=== PATIENT | male | born 1970 | race Two or more races ===

== ENCOUNTER → 2024-06-15 | Outpatient (CLI) | payer MEDICARE, SELFPAY ==
--- NOTE | 2024-06-15 09:16 | XR_ITS ---
Examination: CT abdomen with intravenous contrast. Coronal 2-D reconstructions. Sagittal 2-D reconstructions. Date and time of exam:June 15, 2024 0956 hrs. Comparison August 19, 2021 Indications: Diagnosis cirrhosis 6 years ago, preop liver transplant CTDI: vol (mGy): 7.37 DLP: (mGycm): 229 Technique: Axial images of the abdomen have been obtained, 3 mm slice thickness, 60 cc [id number] 2-D sagittal coronal reconstructions Low dose protocols were performed. One or more of the following dose reduction techniques were used; automated exposure control, adjustment of the mA and/or KV according to patient size, use of iterative reconstruction technique. Findings: Marked mucosal thickening, epigastric Cirrhosis, no focal liver lesions Cholelithiasis Marked splenomegaly Portosystemic collateral vessels medial to the spleen No pancreatic mass Aorta normal size Moderate renal parenchymal scar formation, no hydronephrosis Normal appendix No bowel obstruction Moderate osteopenia Impression: Gastritis pattern Cirrhosis Cholelithiasis Marked splenomegaly Portal hypertension
== END | disposition home or self-care (01) ==
PROVIDERS: PCP Family Medicine
DX: K80.20 Calculus of gallbladder without cholecystitis without obstruction (principal); R16.1 Splenomegaly, not elsewhere classified; K76.6 Portal hypertension
CPT/HCPCS: 74160; A4649; Q9967

== ENCOUNTER 2024-08-01 19:53 | Inpatient (IN) | payer MEDICARE, MEDICAID, SELFPAY ==
[2024-08-01 19:55] VITALS: BP 155/77; PULSE 83; RESP 20; TEMP 36.9; O2SAT 98
--- NOTE | 2024-08-01 20:18 | XR_ITS ---
Examination: AP chest single view TECHNIQUE: AP portable upright chest single view Date and time: August 01, 2024 2142 hours Comparison September 21, 2023 INDICATIONS: Weakness altered mental status today. FINDINGS: Normal heart size. No aspiration pneumonia. No pulmonary edema. Mild osteopenia IMPRESSION: No pneumonia or pulmonary edema
[2024-08-01 20:20] VITALS: PULSE 76; RESP 17; O2SAT 98
[2024-08-01 20:25] VITALS: BMI 24.0
--- NOTE | 2024-08-01 20:25 | EDNOTE_ITS ---
ED General RME/HPI General Chief complaint: Altered Mental Status Stated complaint: ALTERED MENTAL STATUS Time Seen by Provider: 08/01/24 20:17 Arrival date/time: 08/01/24 19:53 CC: Altered mental status HPI patient skipped dialysis because he was not feeling well , the patient has a history of cirrhosis, and did not take his lactulose. Family member stated he has been intermittently obtunded and then active. Patient is not responding to any questions appropriately answering yes to all questions that are asked. EMS reports stable vital signs and route. Related Data Home Medications ?Medication ?Instructions ?Recorded ?Confirmed levothyroxine 50 mcg tablet 50 mcg PO DAILY 07/04/21 0 09/21/23 pantoprazole 40 mg tablet,delayed 40 mg PO DAILY 07/0408/19/21 release propranolol 10 mg tablet 10 mg PO DAILY 07/04/2108/07 spironolactone 50 mg tablet 50 mg PO DAILY 07/04/21 cholecalciferol (vitamin D3) 50 1 cap PO QDAY 08/19/21 08/19/21 mcg (2,000 unit) capsule Previous Rx's ?Medication ?Instructions ?Recorded metformin 500 mg tablet 500 mg PO BID #60 tabs 06/05 ferrous sulfate 325 mg (65 mg 325 mg PO Q OTHER DAY #3 0 tabs 04/22/23 iron) tablet (FeroSul) furosemide 40 mg tablet (Lasix) 40 mg PO QDAY #30 tabs 09/23/23 lactulose 20 gram/30 mL oral 40 g (60 mL) PO TID #5,50 0 mL 09/23/23 solution Allergies Allergy/AdvReac Type Severity Reaction Status Date / Time No Known Allergies Allergy Verified 08/01/24 20:17 Review of Systems Review of Systems ROS Unobtainable: unobtainable due to mental status ED Exam Narrative Physical exam: [General: Appears not in acute distress Head normocephalic HEENT: Eyes pupils are PERRLA EOMs are intact mouth pink dry membranes all the subsystems of HEENT are within acceptable limits Neck is supple nontender Chest equal chest rise nontender to palpation Respiratory: Clear to auscultation no wheezes crackles or rubs CV: Rate rhythm is regular no murmurs rubs or clicks Abdomen is soft nontender no masses positive bowel sounds all 4 quadrants Back: No CVA tenderness no spinous process tenderness from cervical spine thoracic and lumbar spine Skin: Intact no petechiae rash induration ulceration or crepitus Extremities: Moving all extremity against resistance cap refill less than 2 seconds neurosensory intact Neuro: Awake alert oriented self Course Course Course Narrative: Patient continues to have mild altered responses sometimes answering just yes to everything, at 2119, patient is reassessed he is unchanged, on review the laboratory results show that his ammonia level is greater than 140, his creatinine at 4.2. Patient's head CT is negative this time the patient needs to be admitted for hepatic encephalopathy elevated ammonia level and consider dialysis. Patient's case discussed with Dr. Daugherty, resident, for Dr. Lalo Khan's agrees to accept the patient for admission. Quality Measures none Orders Category Date Time Status EKG (ED ONLY) *Do not use* NOW Care 08/01/24 20:[address] head/brain wo con Stat Exams 08/01/24 20:27 Completed EKG (ED Only) Stat Exams 08/01/24 20:18 Ordered XR chest 1V Stat Exams 08/01/24 20:18 Ordered Ammonia Stat Lab 08/01/24 20:35 Completed B-Type Natriuretic Peptide Stat Lab 08/01/24 20:35 Completed CBC Stat Lab 08/01/24 20:35 Completed Comprehensive Metabolic Panel Stat Lab 08/01/24 20:35 Completed Drug Screen,Urine Stat Lab 08/01/24 20:18 Ordered LDH (Lactate Dehydrogenase) Stat Lab 08/01/24 20:35 Completed Magnesium Stat Lab 08/01/24 20:35 Completed Partial Thromboplastin Time Stat Lab 08/01/24 20:35 Completed Prothrombin Time with INR Stat Lab 08/01/24 20:35 Completed Troponin I Stat Lab 08/01/24 20:35 Completed Urinalysis Stat Lab 08/01/24 20:18 Ordered Lactulose Syrup [Enulose Syrup] Med 08/01/24 21:13 Discontinued 40 gm PO X1 ONE cloNIDine HCL [Catapres] Med 08/01/24 21:05 Discontinued 0.2 mg PO X1 ONE Vital Signs Vital signs: Vital Signs Temperature 98.4 F 08/01/24 19:55 Pulse Rate 83 08/01/24 19:55 Respiratory Rate 20 08/01/24 19:55 Blood Pressure 155/77 H 08/01/24 19:55 Pulse Oximetry (%) 98 08/01/24 19:55 Oxygen Delivery Method Room Air 08/01/24 19:55 Discharge Plan Plan Patient Disposition: Other Care w/in Hosp (SDC/HAL) Patient condition on transfer: Stable Prescriptions/Referrals Prescriptions/Med Rec: No Action propranolol 10 mg tablet 10 mg PO DAILY levothyroxine 50 mcg tablet 50 mcg PO DAILY pantoprazole 40 mg tablet,delayed release (DR/EC) 40 mg PO DAILY spironolactone 50 mg tablet 50 mg PO DAILY cholecalciferol (vitamin D3) 50 mcg (2,000 unit) capsule 1 cap PO QDAY Patient Comments: TOME 1 C PSULA POR V A ORAL TODOS LOS D ferrous sulfate [FeroSul] 325 mg (65 mg iron) tablet 325 mg PO Q OTHER DAY Qty: 30 0RF metformin 500 mg tablet 500 mg PO BID Qty: 60 0RF lactulose 20 gram/30 mL solution 40 g PO TID Qty: 5500 0RF furosemide [Lasix] 40 mg tablet 40 mg PO QDAY Qty: 30 0RF Referrals: Randall Ward MD [Primary Care Provider] - In 1 week Problem List Clinical Impression: HE (hepatic encephalopathy), Altered mental status, ESRD (end stage renal disease), Hyperglycemia Patient/Caregiver Discharge Instructions Print Language: Kiswahili Stand Alone Forms: Mago Award Info., Patient Portal Info Letter PA/OBGYN NURSE Supervising Physician PA/OBGYN NURSE Supervising Physician: Main Ivan ENP [facility] Clinical Information Provided by patient and EMS Medical Records [facility] and [facility] Meds/Rx Considered, not Ordered None Labs/Rad/Tests considered, not Ordered None EKG EKG Interpretation narrative: EKG performed at 195 shows a ventricular rate of 75 VA interval 196 QRS of 92 QTc of 484 sinus rhythm Lab Interpretation Labs: interpreted by ar Lab(s) interpretation(s): CBC shows a pancytopenic with a WBC of 2.9 H&H of 11.2 and 31.4 respectively. Platelet count of 80. PT of 13.1 INR 1.2 PTT of 27.5 CMP shows no significant electrolyte imbalances other than a glucose of 256 BUN of 36 creatinine 4.2 T. bili of 2.3 ALT of 9 alk phos of 190 AST of 14 Ammonia of 142 Troponin is 0.002. BMP of 271 Imaging Imaging interpretation: interpreted by me Provider imaging interpretation(s): CT of the head is negative for any acute finding requires emergent or main intervention. Medication Administration(s) Medication Administration History Discontinued Medications Clonidine (Clonidine Hcl 0.1 Mg Tablet) 0.2 mg PO X1 ONE Stop: 08/01/24 21:06 Lactulose (Lactulose Syrup 20 Gm/30 Ml Udc) 40 gm PO X1 ONE; Protocol Stop: 08/01/24 21:14
--- NOTE | 2024-08-01 20:27 | XR_ITS ---
Examination: CT brain head without contrast. 2-D sagittal coronal reconstructions Date and time of exam:August 01, 20245 hours INDICATIONS: Altered mental status today CTDI: vol (mGy):46.1 DLP: (mGycm):886 Technique: Multiple CT axial sections of the brain have been obtained, 5 mm slice thickness. Contrast has not been administered. 2-D sagittal, coronal reconstructions have been obtained Low dose protocols were performed. One or more of the following dose reduction techniques were used; automated exposure control, adjustment of the mA and/or KV according to patient size, use of iterative reconstruction technique. Findings: No significant ventricular enlargement. Intra-axial or extra-axial hemorrhage density is not seen. No mass effect or midline shift Basal cisterns are not remarkable. Fourth ventricle is midline. Cranial vault intact. Impression: Negative for acute hemorrhage, mass effect or midline shift Advise clinical correlation and follow up accordingly
--- NOTE | 2024-08-01 20:47 | PC.NURSE ---
CALLED SON TO GET NAME OF COMPASS OPERATOR
[2024-08-01 20:48] LABS: Basophils % (Auto) 0 % (0-2.5); Eosinophils # (Auto) 0.1 Thou/mm3 (0.0-0.5); Eosinophils % (Auto) 3 % (0-10); Hematocrit 31.4 % (41.0-53.0); Hemoglobin 11.2 g/dL (13.5-16.0); Immature Granulocytes % (Auto) 0 % (0-0); Immature Granulocytes Auto 0.01 Thou/mm3 (0.00-0.00); Lymphocytes # (Auto) 0.6 Thou/mm3 (1.0-4.8); Lymphocytes % (Auto) 20 % (10-50); Mean Corpuscular HGB Conc 35.7 g/dl (31.0-37.0); Mean Corpuscular Volume 106 fL (80-100); Monocytes # (Auto) 0.2 Thou/mm3 (0.0-0.8); Monocytes % (Auto) 8 % (0-12); Neutrophils % (Auto) 70 % (37-80); Nucleated Red Blood Cell % 0 /100 WBC (0); Platelet Count 80 Thou/mm3 (140-440); RDW Standard Deviation 58.6 fL (35.1-43.9); Red Blood Count 2.95 Miln/mm3 (4.50-5.90)
[2024-08-01 20:49] LABS: White Blood Count 2.9 Thou/mm3 (3.8-10.6)
--- NOTE | 2024-08-01 20:56 | PC.NURSE ---
SON CALLED BACK PT COMPUTER SOFTWARE ENGINEER IS DR. AC MEHTA
[2024-08-01 21:00] LABS: B-Type Natriuretic Peptide 271 pg/mL (0-100); INR 1.2 (0.9-1.3); Partial Thromboplastin Time 27.5 Seconds (22.0-36.0); Prothrombin Time 13.1 Seconds (9.0-12.2)
[2024-08-01 21:01] LABS: Ammonia 142 uMol/L (11-32)
[2024-08-01 21:04] LABS: Alanine Aminotransferase 9 U/L (10-49); Albumin, Serum 3.2 gm/dL (3.5-5.0); Anion Gap 10 (7-16); Aspartate Amino Transferase 14 U/L (0-34); BUN/Creatinine Ratio 9 Ratio (12-20); Bilirubin,Total 2.3 mg/dL (0.3-1.2); Blood Urea Nitrogen 36 mg/dL (9-23); Calcium 10.2 mg/dL (8.3-10.6); Calcium (Corrected) 10.8 mg/dL (8.5-10.1); Carbon Dioxide 20.8 mMol/L (20.0-31.0); Chloride 107 mMol/L (98-107); Creatinine (Component) 4.2 mg/dL (0.6-1.3); Estimated Creatinine Clearance 17.9 mL/min (>60); Globulin 3.5 gm/dL (2.3-3.5); Glucose 256 mg/dL (74-106); LDH (Lactate Dehydrogenase) 159 U/L (120-246); Magnesium 1.9 mg/dL (1.6-2.6); Osmolality,Calculated 292 (275-295); Potassium 4.7 mMol/L (3.4-5.1); Sodium 138 mMol/L (136-145); Total Protein 6.7 gm/dL (5.7-8.2); Troponin I < 0.002 ng/mL (0.0-0.045); eGFR 16 See Note
[2024-08-01 21:05] LABS: Albumin/Globulin Ratio 0.9 (1.2-2.2); Alkaline Phosphatase 190 U/L (46-116)
--- NOTE | 2024-08-01 22:05 | ESHP_ITS ---
Documentation for date of: 08/01/24 HPI History of Present Illness History of present illness: Patient is a 53-year-old male with a past medical history of decompensated cirrhosis, end-stage renal disease, hypertension, accompanied by the son, who brought him to the emergency room complaining of altered mental status. States most of the HPI was completed from chart review and son's interview. Per son, patient has been confused since yesterday, has not had a bowel movement in the last 2 days, is usually compliant with his dialysis schedule, but missed dialysis today due to mental status. Denied having a fever, GI bleed, melena or hematemesis, cough, diarrhea or dysuria. Denied recent alcohol or drug intake. Of note, patient is followed by service order expediter in [place], is being evaluated for liver transplant but has not been placed on liver transplant list yet. ER Labs: CBC shows a pancytopenic with a WBC of 2.9 H&H of 11.2 and 31.4 respectively. Platelet count of 80. PT of 13.1 INR 1.2 PTT of 27.5 CMP shows no significant electrolyte imbalances other than a glucose of 256 BUN of 36 creatinine 4.2 T. bili of 2.3 ALT of 9 alk phos of 190 AST of 14 Ammonia of 142 Troponin is 0.002. BNP of 271 CT of the head is negative for any acute finding requires emergent or main intervention. Past medical history: End-stage renal disease on hemodialysis Thursday/Thursday/Thursday, followed by Dr. Diaz. Decompensated cirrhosis with ascites, hepatic encephalopathy. Diabetes mellitus. Hypothyroidism. Past surgical history: Not pertinent Social history: Denies smoking or drinking, per son patient quit drinking alcohol over 6 years ago. Family history: Not pertinent Review of Systems Review of Systems Systems Reviewed: All systems reviewed, normal except as documented Past Medical History Past Medical History NEUROLOGIC: Positive Seizures CARDIAC: Positive Hypertension; Negative Cardiac Disorders or Congestive Heart Failure RESPIRATORY: Negative Chronic Obstructive Pulmonary Disease (COPD) or Asthma GASTROINTESTINAL: Positive Gastrointestinal Disorders (Son at bedside said that pt has Ulcer.), Cirrhosis, Gastrointestinal Bleed and Ulcer GENITOURINARY: Positive Renal Disease and Dialysis ENDOCRINE: Negative Diabetes Mellitus Type 1 or Diabetes Mellitus Type 2 HEMATOLOGIC: Negative Blood Disorders or Sickle Cell Disease OTHER HISTORY: Negative Autoimmune Disease, Blood Transfusions, Blood Transfusion Reaction or Anesthesia Reactions Family History FAMILY HISTORY: Negative Family Psychiatric Problems, Family Respiratory Disorders, Family Cardiac Disorders, Family Gastrointestinal Problems, Family Cancer, Family Surgery or Family Anesthesia Reaction Social History SMOKING STATUS: Never smoker SECOND HAND EXPOSURE: No SUBSTANCE USE: does not use Exam Vital Signs Temp Pulse Resp BP Pulse Ox O2 Del Method 98.4 F 83 20 155/77 H 98 Room Air 08/01/24 19:55 08/01/24 19:55 08/01/24 19:55 08/01/24 19:55 08/01/24 19:55 08/01/24 19:55 Narrative Exam General: AOx1, disoritented but calm, confused speech, flapping tremors positive HEENT: NC/AT, mucous membranes moist, bilateral sclera anicteric Cardiovascular: regular rate and rhythm, S1/S2 present, no murmurs appreciated Pulmonary: clear to auscultation bilaterally, no rales/rhonchi/wheezes Abdominal: soft, non-tender, mildy distended, no rebound/guarding, normal bowel sounds present Musculoskeletal: normal ROM, no peripheral edema Skin: warm and dry, intact, no rashes Neuro: CN II-XII intact, no focal deficits Results: Labs 08/01/24 20:35 08/01/24 20:35 Labs: Short CBC 08/01/24 Range/Units 20:35 WBC 2.9 L (3.8-10.6) Thou/mm3 Hgb 11.2 L (13.5-16.0) g/dL Hct 31.4 L (41.0-53.0) % Plt Count 80 L (140-440) Thou/mm3 BMP 08/01/24 20:35 Sodium 138 Potassium 4.7 Chloride 107 Carbon Dioxide 20.8 BUN 36 H Creatinine 4.2 H* Glucose 256 H Calcium 10.2 Cardiac Enzymes 08/01/24 Range/Units 20:35 Troponin I < 0.002 (0.0-0.045) ng/mL Liver Function 08/01/24 Range/Units 20:35 Total Bilirubin 2.3 H (0.3-1.2) mg/dL AST 14 (0-34) U/L ALT 9 L (10-49) U/L Alkaline Phosphatase 190 H (46-116) U/L Albumin 3.2 L (3.5-5.0) gm/dL Quality Measures Quality Measures none Medications Home Medications and Allergies Home Medications ?Medication ?Instructions ?Recorded ?Confirmed ?Type levothyroxine 50 mcg tablet 50 mcg PO DAILY 07/04/21 0 09/21/23 History pantoprazole 40 mg tablet,delayed 40 mg PO DAILY 07/0408/19/21 History release propranolol 10 mg tablet 10 mg PO DAILY 07/04/2108/07 History spironolactone 50 mg tablet 50 mg PO DAILY 07/04/21 History cholecalciferol (vitamin D3) 50 1 cap PO QDAY 08/19/21 08/19/21 History mcg (2,000 unit) capsule Allergies Allergy/AdvReac Type Severity Reaction Status Date / Time No Known Allergies Allergy Verified 08/01/24 20:17 Visit Medications Discontinued Medications Clonidine (Clonidine Hcl 0.1 Mg Tablet) 0.2 mg PO X1 ONE Stop: 08/01/24 21:06 Lactulose (Lactulose Syrup 20 Gm/30 Ml Udc) 40 gm PO X1 ONE; Protocol Stop: 08/01/24 21:14 Assessment & Plan Plan Patient is a 53-year-old male with a past medical history of decompensated cirrhosis, end-stage renal disease, hypertension, accompanied by the son, who brought him to the emergency room complaining of altered mental status. States most of the HPI was completed from chart review and son's interview. Per son, patient has been confused since yesterday, has not had a bowel movement in the last 2 days, is usually compliant with his dialysis schedule, but missed dialysis today due to mental status. Denied having a fever, GI bleed, melena or hematemesis, cough, diarrhea or dysuria. Denied recent alcohol or drug intake. #Acute metabolic encephalopathy #Decompensated cirrhosis Likely secondary to hepatic encephalopathy versus uremic encephalopathy. prior history of hepatic encephalopathy, currently precipitating factor is likely constipation, no bowel movement in last 2 days, also missed scheduled hemodialysis today. Chest x-ray negative for pneumonia, pending urinalysis ordered straight and out cath. Abdominal soft nontender, no clinical suspicion of SBP, no history or evidence of GI bleed, stool occult pending. ? Lactulose enema 200 g x 1 ? Insert rectal tube ? Continue rifaximin ? Holding Lasix for now, patient is not in any acute volume overload, continue spironolactone ? Propranolol 10 mg twice daily ? IV Protonix for GI prophylaxis #History of ESRD - consult to narrative writer Dr Woods for Scheduled hemodialysis.. #History of diabetes mellitus ?Sliding scale insulin every 6 hour, patient n.p.o. for now due to encephalopathy. ?Follow A1c in the a.m. #History of Hypothyroidism - continue levothyroxine Plan of care discussed with attending physician Johanny PGY2 Attending Provider Attestation/Addendum 53-year-old male patient with decompensated cirrhosis, pancytopenia was admitted for hepatic encephalopathy. The patient will continue on rifaximin and lactulose enema I discussed with and supervised the resident physician who took care of this patient. I agree with the assessment and plan as above.
[2024-08-01 22:24] VITALS: BP 148/79; PULSE 73; RESP 19; TEMP 36.6; O2SAT 98
--- NOTE | 2024-08-01 22:24 | PC.NURSE ---
DONT GIVE PO LACTOLOSE PER
--- NOTE | 2024-08-01 22:32 | PC.NURSE ---
PER. DR. BENITA CADET GIVE CLONIDINE PT CURRENT B/P 125/76
[2024-08-01 22:43] VITALS: PULSE 69; RESP 13; O2SAT 100
--- NOTE | 2024-08-01 22:57 | PC.NURSE ---
ATTEMPTED IN AND OUT CATH NO URINE OUTPUT WHEN PT ASKED HE STATED HE DOES NOT HAVE MAKE URINE BEFORE
[2024-08-01 23:22] VITALS: BMI 23.7
[2024-08-02] VITALS (30 sets, daily range): BP systolic 102–171; BP diastolic 65–88; PULSE 56–91; RESP 16–99; TEMP 36.1–36.6; O2SAT 97–100
--- NOTE | 2024-08-02 00:04 | PC.NURSE ---
Patient had an order for a latulose enema, but patient refused. Rn will notify hospitalists.
--- NOTE | 2024-08-02 00:09 | XR_ITS ---
Examination: Abdomen sonogram, complete Date and time of exam: August 02, 2024 0226 hours INDICATIONS: Abdominal distention today. Technique: Multiple real-time grayscale transabdominal sonographic images of the abdomen have been obtained. Findings: Multiple gallstones Gallbladder wall 0.52 cm Common bile duct 0.3 cm Pancreatic head 2.9 cm Mid and distal aorta not enlarged Liver 11.1 cm irregular contour fatty infiltration Normal hepatopedal portal venous flow Patent IVC Right kidney 8.2 cm renal cortex 1.4 cm Left kidney 11.1 cm renal cortex 1.6 cm Moderate renal parenchymal scar formation Spleen 15.4 cm with portosystemic collateral vessels medial to the spleen IMPRESSION: Cholelithiasis, abnormal thickening of the gallbladder wall, consider HIDA scan or MRCP follow-up Cirrhosis Mild splenomegaly Portal hypertension with portosystemic collateral vessels medial to the spleen
[2024-08-02] MEDS: LACTULOSE SYRUP 20 GM/30 ML UDC 200 GM PR (00:10)
[2024-08-02] MEDS: INSULIN LISPRO (AdmeLOG) 1 UNIT/0.01 ML UNIT SC ×4 (00:37→18:16)
--- NOTE | 2024-08-02 00:40 | PC.NURSE ---
Addendum entered by Ismael De La Cruz RN 08/02/24 05:54: 0554 - Admission questions completed over phone with Bobo Ward (son) at [phone] Original Note: 0041H - Pt unable to answer admission questions. HUEY Guevara will all family at an appropriate time.
--- NOTE | 2024-08-02 02:06 | PC.NURSE ---
Addendum entered by Ismael De La Cruz RN 08/02/24 05:56: Bobo Ward (son) will bring medications to hospital when he comes to visit. Original Note: Med rec not done. Pt confused. RN will notify family to bring medication to hospital.
--- NOTE | 2024-08-02 04:08 | PRELIM_ITS ---
Ultrasound Abdomen. August 02, 2024 0226 hours Clinical history: ascites Technique: Grayscale and color flow images of the abdomen are provided. Hepatic and portal veins were also imaged with color flow images. Comparison: None Findings: Liver demonstrates heterogeneous echogenicity with irregular contour . Vein seen medial to the left lobe of liver ? recanalization of umbilical vein. No intrahepatic biliary ductal dilatation. There are gallbladder calculi, with wall thickening measuring 5 mm. The common bile duct is normal in caliber at 3 mm. No free fluid is demonstrated on the submitted images. The pancreas is suboptimally visualized due to excessive bowel gas . The right kidney measures 8.2cm. The left kidney measures 11 cm. There is no hydronephrosis and the corticomedullary differentiation is maintained. There is bilateral renal scarring .The spleen is enlarged measuring 15 cm in length.Varicose veins seen at hilum. The abdominal aorta and inferior vena cava to the extent visualized are within normal limits. Impression: Heterogeneous echogenicity of the liver with irregular borders suggestive of cirrhosis. Mild splenomegaly. Splenic hilar varices and recanalized umbilical vein as described above. No free fluid is demonstrated on the submitted images. Other findings as described above. Report Electronically Signed By: Bentley Otero 08/02/2024 4:07:56 AM [EST]
--- NOTE | 2024-08-02 04:52 | PC.NURSE ---
Dr. Barclay made aware of report of US Abdomen.
[2024-08-02 05:56] LABS: Basophils % (Auto) 1 % (0-2.5); Eosinophils # (Auto) 0.1 Thou/mm3 (0.0-0.5); Eosinophils % (Auto) 3 % (0-10); Hemoglobin 12.1 g/dL (13.5-16.0); Immature Granulocytes % (Auto) 1 % (0-0); Immature Granulocytes Auto 0.02 Thou/mm3 (0.00-0.00); Lymphocytes # (Auto) 0.6 Thou/mm3 (1.0-4.8); Lymphocytes % (Auto) 17 % (10-50); Mean Corpuscular HGB Conc 34.6 g/dl (31.0-37.0); Mean Corpuscular Hemoglobin 37.9 pg (25.0-35.0); Mean Corpuscular Volume 110 fL (80-100); Monocytes # (Auto) 0.3 Thou/mm3 (0.0-0.8); Monocytes % (Auto) 8 % (0-12); Neutrophils # (Auto) 2.4 Thou/mm3 (1.8-7.7); Neutrophils % (Auto) 71 % (37-80); Nucleated Red Blood Cell % 0 /100 WBC (0); Platelet Count 80 Thou/mm3 (140-440); RDW Standard Deviation 61.9 fL (35.1-43.9); Red Blood Count 3.19 Miln/mm3 (4.50-5.90); White Blood Count 3.4 Thou/mm3 (3.8-10.6)
[2024-08-02 06:11] LABS: INR 1.2 (0.9-1.3); Prothrombin Time 12.7 Seconds (9.0-12.2)
[2024-08-02 06:31] LABS: Glucose Estimated Average 157 mg/dL (80-131); Hemoglobin A1C 7.1 % Hgb (4.8-6.0)
[2024-08-02 06:34] LABS: Alanine Aminotransferase 9 U/L (10-49); Albumin, Serum 3.4 gm/dL (3.5-5.0); Alkaline Phosphatase 183 U/L (46-116); Anion Gap 14 (7-16); Aspartate Amino Transferase 18 U/L (0-34); BUN/Creatinine Ratio 8 Ratio (12-20); Bilirubin,Direct 0.9 mg/dL (0.0-0.3); Bilirubin,Total 2.7 mg/dL (0.3-1.2); Blood Urea Nitrogen 35 mg/dL (9-23); Calcium 10.5 mg/dL (8.3-10.6); Carbon Dioxide 19.2 mMol/L (20.0-31.0); Chloride 108 mMol/L (98-107); Creatinine (Component) 4.3 mg/dL (0.6-1.3); Estimated Creatinine Clearance 17.5 mL/min (>60); Glucose 333 mg/dL (74-106); Magnesium 2.1 mg/dL (1.6-2.6); Osmolality,Calculated 302 (275-295); Phosphorous 3.7 mg/dL (2.4-5.1); Potassium 4.6 mMol/L (3.4-5.1); Sodium 141 mMol/L (136-145); Thyroid Stimulating Hormone 2.17 uIU/mL (0.55-4.78); Total Protein 7.1 gm/dL (5.7-8.2); eGFR 15 See Note
[2024-08-02 06:48] LABS: Cholesterol 133 mg/dL (132-200); HDL Cholesterol 44 mg/dL (40-60); LDL Cholesterol,Calculated 73 mg/dL (0-130); Triglycerides 81 mg/dL (30-150)
[2024-08-02] MEDS: rifaximin 550 MG TABLET PO ×2 (08:36→21:03)
[2024-08-02] MEDS: SPIRONOLACTONE 25 MG TABLET 50 MG PO (08:36)
[2024-08-02] MEDS: LACTULOSE SYRUP 20 GM/30 ML UDC PO ×2 (08:37→21:02)
[2024-08-02] MEDS: PROPRANOLOL 10 MG TABLET PO (08:37)
[2024-08-02] MEDS: PANTOPRAZOLE INJ 40 MG VIAL IVP (08:37)
[2024-08-02] MEDS: ONDANSETRON INJ 2 MG/ML INJ 2 ML 4 MG IV ×3 (08:57→21:03)
--- NOTE | 2024-08-02 09:35 | ESPR_ITS ---
Documentation for date of: 08/02/24 Subjective Subjective Interval history: Patient was seen and examined at bedside this AM. No acute exents overnight. Patient tolerating diet, adequate urine output and oriented to self only Patient had 3 bowel movements and an episode of vomiting after his morning meds. Started on lasix 40mg IV daily, levothyroxine 25mg IV and ondansetron 4mg IV q4hrly. Scheduled lactulose 20G po QID as tolerated Exam Vital Signs Temp Pulse Resp BP Pulse Ox O2 Del Method O2 Flow Rate 97.1 F 79 18 165/88 H 98 Nasal Cannula 2 08/02/24 08:00 08/02/24 08:37 08/02/24 08:00 08/02/24 08:37 08/02/24 08:00 08/02/24 04:00 08/02/24 04:00 Narrative Exam General: AOx1, disoritented but calm, confused speech, flapping tremors positive HEENT: NC/AT, mucous membranes moist, bilateral sclera anicteric Cardiovascular: regular rate and rhythm, S1/S2 present, no murmurs appreciated Pulmonary: clear to auscultation bilaterally, no rales/rhonchi/wheezes Abdominal: soft, non-tender, mildy distended, no rebound/guarding, normal bowel sounds present Musculoskeletal: normal ROM, no peripheral edema Skin: warm and dry, intact, no rashes Neuro: CN II-XII intact, no focal deficits. Oriented to person only Objective Labs 08/03/24 05:36 08/03/24 05:36 Labs: Laboratory Results - last 24 hr 08/01/24 08/02/24 20:35 04:35 WBC 2.9 L 3.4 L RBC 2.95 L 3.19 L Hgb 11.2 L 12.1 L Hct 31.4 L 35.0 L MCV 106 H 110 H MCH 38.0 H 37.9 H MCHC 35.7 34.6 RDW Std Deviation 58.6 H 61.9 H Plt Count 80 L 80 L Neut % (Auto) 70 71 Lymph % (Auto) 20 17 [place] % (Auto) 8 8 Eos % (Auto) 3 3 Baso % (Auto) 0 1 Neut # (Auto) 2.0 2.4 Lymph # (Auto) 0.6 L 0.6 L [place] # (Auto) 0.2 0.3 Eos # (Auto) 0.1 0.1 Baso # (Auto) 0.0 0.0 Immature Gran # (Auto) 0.01 H 0.02 H Absolute Nucleated RBC 0.00 0.00 Immature Gran % 0 1 H Nucleated RBC % 0 0 PT 13.1 H 12.7 H INR 1.2 1.2 APTT 27.5 Sodium 138 141 Potassium 4.7 4.6 Chloride 107 108 H Carbon Dioxide 20.8 19.2 L Anion Gap 10 14 BUN 36 H 35 H Creatinine 4.2 H* 4.3 H* Estim Creat Clear Calc 17.9 L 17.5 L eGFR 16 L 15 L BUN/Creatinine Ratio 9 L 8 L Glucose [address] Glu mg/dL 157 H Hemoglobin A1c 7.1 H Calculated Osmolality 292 302 H Calcium 10.2 10.5 Corrected Calcium 10.8 H Phosphorus 3.7 Magnesium 1.9 2.1 Total Bilirubin 2.3 H 2.7 H Direct Bilirubin 0.9 H AST 14 18 ALT 9 L 9 L Alkaline Phosphatase 190 H 183 H Ammonia 142 H* Lactate Dehydrogenase 159 Troponin I < 0.002 B-Natriuretic Peptide 271 H Total Protein 6.7 7.1 Albumin 3.2 L 3.4 L Globulin 3.5 Albumin/Globulin Ratio 0.9 L Triglycerides 81 Cholesterol 133 LDL Cholesterol, Calc 73 HDL Cholesterol 44 Cholesterol/HDL Ratio 3.0 L TSH 2.17 Quality Measures Quality Measures none Assessment & Plan Assessment Current Active Medications: Generic Name Dose Route Start Last Admin Trade Name Freq PRN Reason Stop Dose Admin Acetaminophen 650 mg 08/01/24 22:05 Acetaminophen 325 Mg Tablet PO 08/31/24 22:04 Q6H PRN PAIN OR FEVER > 101 Dextrose 25 ml 08/01/24 22:12 Dextrose 50%-Water Inj 50 Ml Syringe IV 08/31/24 22:11 Q15MIN PRN BG 50-70 responsive npo pt Dextrose 50 ml 08/01/24 22:12 Dextrose 50%-Water Inj 50 Ml Syringe IV 08/31/24 22:11 Q15MIN PRN BG <50 OR BG <70 & pt unresponsive Furosemide 20 mg 08/02/24 09:00 Furosemide Inj 10 Mg/Ml Vial 2 Ml IVP 09/01/24 08:59 QDAY ZAKI Glucagon 1 mg 08/01/24 22:12 Glucagon Inj 1 Mg Vial IM Q15MIN PRN BG <70, and no IV access Hydralazine HCl 10 mg 08/02/24 08:48 Hydralazine Inj 20 Mg/Ml Vial IVP 09/01/24 08:47 Q6HR PRN SBP > 170 Insulin Human Lispro 0 unit 08/02/24 00:00 08/02/24 05:30 Insulin Lispro (Admelog) 1 Unit/0.01 Ml Unit SC 09/01/24 00:00 4 unit Q6HR ZAKI Administration Protocol Lactulose 20 gm 08/02/24 08:00 08/02/24 08:37 Lactulose Syrup 20 Gm/30 Ml Udc PO 09/01/24 07:59 20 gm QID ZAKI Administration Protocol Ondansetron HCl 4 mg 08/02/24 09:00 08/02/24 08:57 Ondansetron Inj 2 Mg/Ml Inj 2 Ml IV 09/01/24 08:59 4 mg Q4HR ZAKI Administration Protocol Pantoprazole Sodium 40 mg 08/02/24 09:00 08/02/24 08:37 Pantoprazole Inj 40 Mg Vial IVP 09/01/24 08:59 40 mg QDAY ZAKI Administration Propranolol HCl 10 mg 08/02/24 09:00 08/02/24 08:37 Propranolol 10 Mg Tablet PO 09/01/24 08:59 10 mg BID ZAKI Administration Rifaximin 550 mg 08/02/24 09:00 08/02/24 08:36 Rifaximin 550 Mg Tablet PO 08/09/24 08:59 550 mg BID ZAKI Administration Spironolactone 50 mg 08/02/24 09:00 08/02/24 08:36 Spironolactone 25 Mg Tablet PO 09/01/24 08:59 50 mg DAILY ZAKI Administration Plan Patient is a 53-year-old male with a past medical history of decompensated cirrhosis, end-stage renal disease, hypertension, accompanied by the son, who brought him to the emergency room complaining of altered mental status. States most of the HPI was completed from chart review and son's interview. Per son, patient has been confused since yesterday, has not had a bowel movement in the last 2 days, is usually compliant with his dialysis schedule, but missed dialysis today due to mental status. Denied having a fever, GI bleed, melena or hematemesis, cough, diarrhea or dysuria. Denied recent alcohol or drug intake. #Acute metabolic encephalopathy - resolving #Decompensated cirrhosis Likely secondary to hepatic encephalopathy versus uremic encephalopathy. prior history of hepatic encephalopathy, currently precipitating factor is likely constipation, no bowel movement in last 2 days, also missed scheduled hemodialysis today. Chest x-ray negative for pneumonia, pending urinalysis ordered straight and out cath. Abdominal soft nontender, no clinical suspicion of SBP, no history or evidence of GI bleed, stool occult pending. Oriented to self only Patient had 3 bowel movements and an episode of vomiting after his morning meds. Started on lasix 40mg IV daily, levothyroxine 25mg IV and ondansetron 4mg IV q4hrly. Scheduled lactulose 20G po QID as tolerated #History of ESRD - Speech Therapy Teacher Dr Woods consulted for Scheduled hemodialysis.. #History of diabetes mellitus -Lantus 10 U sc HS ?Sliding scale insulin every 6 hour ?Follow A1c in the a.m. #History of Hypothyroidism - Started on levothyroxine 25 mg IV Health maintenance: Disposition: Pending resolution of hepatic encephalopathy. IV medication Diet: NPO Lines: pIVs GI Prophylaxis: Pantoprazole Thrombo Prophylaxis: SCDs Code status: FULL CODE Plan of care discussed with Attending Dr. Jaziel Glaser MD PGY 1 Disclaimer: This note was dictated by speech recognition. Minor errors in carton forming machine helper may be present due to voice recognition software. Attending Provider Attestation/Addendum I reviewed labs, imaging, EKG, home medications and prior available records. Face to face evaluation was performed by me. I have personally examined the patient and discussed assessment and plan with the IM team. I reviewed the resident note and agree with the plan with exceptions as below. Acute encephalopathy Hepatic encephalopathy, liver cirrhosis Uncontrolled diabetes mellitus with hyperglycemia, insulin-dependent type 2 Pancytopenia, likely in setting of liver disease ESRD on hemodialysis Continue lactulose and rifaximin. Monitor for bowel movements Started insulin Lantus plus sliding scale insulin. Monitor fingersticks Monitor CBC Avoid alcohol use Consulted nephrology for routine hemodialysis
[2024-08-02] MEDS: LEVOTHYROXINE INJ 100 mCg VIAL 25 MCG IV (09:37)
[2024-08-02] MEDS: FUROSEMIDE INJ 10 MG/ML VIAL 2 ML 20 MG IVP (09:37)
[2024-08-02] MEDS: INSULIN GLARGINE (Lantus) 5 UNIT/0.05 ML (PER 5 UNITS) 10 UNIT SC (11:29)
[2024-08-02 14:02] LABS: Hepatitis A Antibody IgM Non Reactive (Non React); Hepatitis B Core Antibody IgM Non Reactive (Non React); Hepatitis B Surface Ab Reactive (Immune) (Immune); Hepatitis B Surface Antigen Non Reactive (Non React); Hepatitis C Antibody Non Reactive (Non React)
--- NOTE | 2024-08-02 14:41 | PC.SS ---
Sky Burton is a 53-year-old male admitted to [facility] for Encephalopathy. SS conducted over the phone contact with pts Renée Ward [phone] to complete initial assessment. Role and reason explained. Renée reports pt lives with her. Pt is independent with all ADLS. No need for any source of DME. DC options discussed and they wish for pt to return home. Pts brother will transport him home at the time of DC Bobo Ward [phone]. SS will remain available to address any other concerns or needs. DC plan: Home DM: , Renée
--- NOTE | 2024-08-02 14:46 | PC.NURSE ---
BP TRENDING DOWN PT DENIES ALL S/S OF HYPOTENSION, UF GOAL LOWERED TO 2L TOLERATED, WILL CONT. TO MONITOR
[2024-08-03] VITALS (24 sets, daily range): BP systolic 90–172; BP diastolic 73–92; PULSE 65–95; RESP 16–98; TEMP 36.1–36.6; O2SAT 99; BMI 23.6
[2024-08-03] MEDS: INSULIN LISPRO (AdmeLOG) 1 UNIT/0.01 ML UNIT SC ×2 (01:38→06:14)
[2024-08-03 06:00] LABS: Basophils % (Auto) 0 % (0-2.5); Eosinophils # (Auto) 0.1 Thou/mm3 (0.0-0.5); Eosinophils % (Auto) 1 % (0-10); Hematocrit 40.4 % (41.0-53.0); Hemoglobin 14.4 g/dL (13.5-16.0); Immature Granulocytes % (Auto) 0 % (0-0); Immature Granulocytes Auto 0.01 Thou/mm3 (0.00-0.00); Lymphocytes # (Auto) 0.9 Thou/mm3 (1.0-4.8); Lymphocytes % (Auto) 15 % (10-50); Mean Corpuscular HGB Conc 35.6 g/dl (31.0-37.0); Mean Corpuscular Hemoglobin 37.2 pg (25.0-35.0); Mean Corpuscular Volume 104 fL (80-100); Monocytes # (Auto) 0.6 Thou/mm3 (0.0-0.8); Monocytes % (Auto) 10 % (0-12); Neutrophils # (Auto) 4.7 Thou/mm3 (1.8-7.7); Neutrophils % (Auto) 74 % (37-80); Nucleated Red Blood Cell % 0 /100 WBC (0); Platelet Count 89 Thou/mm3 (140-440); RDW Standard Deviation 60.8 fL (35.1-43.9); Red Blood Count 3.87 Miln/mm3 (4.50-5.90); White Blood Count 6.3 Thou/mm3 (3.8-10.6)
[2024-08-03] MEDS: LACTULOSE SYRUP 20 GM/30 ML UDC PO ×2 (06:13→15:32)
[2024-08-03 06:18] LABS: Anion Gap 16 (7-16); BUN/Creatinine Ratio 6 Ratio (12-20); Blood Urea Nitrogen 25 mg/dL (9-23); Calcium 9.6 mg/dL (8.3-10.6); Carbon Dioxide 24.2 mMol/L (20.0-31.0); Chloride 97 mMol/L (98-107); Creatinine (Component) 4.2 mg/dL (0.6-1.3); Estimated Creatinine Clearance 17.9 mL/min (>60); Glucose 262 mg/dL (74-106); Osmolality,Calculated 287 (275-295); Potassium 4.3 mMol/L (3.4-5.1); Sodium 137 mMol/L (136-145); eGFR 16 See Note
--- NOTE | 2024-08-03 09:18 | PC.SS ---
Follow up note: Waiting for bowel movement. Pt is established with out patient dialysis with Dr. Chuck DON.
[2024-08-03] MEDS: rifaximin 550 MG TABLET PO (10:00)
[2024-08-03] MEDS: PROPRANOLOL 10 MG TABLET PO (10:00)
[2024-08-03] MEDS: SPIRONOLACTONE 25 MG TABLET 50 MG PO (10:10)
[2024-08-03] MEDS: PANTOPRAZOLE INJ 40 MG VIAL IVP (10:21)
[2024-08-03] MEDS: FUROSEMIDE INJ 10 MG/ML VIAL 2 ML 20 MG IVP (10:24)
[2024-08-03] MEDS: INSULIN HUM REGULAR 1 UNIT/0.01 ML (PER UNIT) SC (12:20)
[2024-08-03] MEDS: INSULIN LISPRO (AdmeLOG) 1 UNIT/0.01 ML UNIT 3 UNIT SC (12:21)
--- NOTE | 2024-08-03 14:51 | ESDS_ITS ---
<Statement entered by Jian Barraza MD - 08/03/24 22:12> Patient was seen and examined at bedside. I agree on the assessment and plan on this note. - Patient's plan and care discussed with my attending, Dr. Jaziel Barraza MD Internal Medicine PGY-2 Planned Discharge Date 08/03/24 DS: Providers Provider Date of admission: 08/01/24 22:05 Primary care physician: Randall Ward MD Admitting Provider: Hugo Santana MD Attending Provider on Admission: Bertrand Sheriff MD Consults: 08/01/24 22:27 Consult to Nephrology Routine Comment: Missed scheduled hemodialysis on Thursday Consulting Provider: Santy Woods Attending Provider on DC: Bertrand Sheriff MD Discharging Provider: Lawrence Glaser MD DS: Diagnosis Problem List Completed Was Problem List Reviewed/Reconciled?: Yes Hospital Course Hospital Course Hospital course: Patient is a 53-year-old male with a past medical history of decompensated cirrhosis, end-stage renal disease, hypertension, accompanied by the son, who brought him to the emergency room complaining of altered mental status. States most of the HPI was completed from chart review and son's interview. Per son, patient has been confused since yesterday, has not had a bowel movement in the last 2 days, is usually compliant with his dialysis schedule, but missed dialysis today due to mental status. Patient was initially treated with lactulose enema after which she had 3 bowel movements and his mentation began to improved. He was then transition to lactulose 30 g Mg p.o. 3 times daily and rifaximin 550 Mg p.o. twice daily which caused him diarrhea and this dose was tapered down. Patient also underwent hemodialysis while hospitalized as per nephrology recommendations. His blood sugars were in the 2-3 100s and he was started on insulin glargine 20 units at bedtime along with lispro 3 units SC 3 times daily with meals. All patient's labs are now returning to his baseline and patient is now clinically stable and fit for discharge to home. Discharge diagnoses: 1. Hepatic encephalopathy?resolved 2. Decompensated alcoholic cirrhosis with thrombocytopenia and coagulopathy 3. ESRD on hemodialysis via left AV fistula 4. Insulin-dependent diabetes mellitus type 2 5. Hypothyroidism Discharge plan: ? Continue taking insulin Tresiba, 10 units/day. If you have any other long- acting insulin at home do not take. ? Take 3 units threetimes a day 30 minutes before meals. ? Take 30 mL of lactulose 3 times a day to achieve 2?3 bowel movements per day. You can increase up to 45 mL 4 times a day as necessary. If you have more than 3 bowel movements a day hold your lactulose for that day only. ? Continue taking propranolol 1 tablet twice a day. ? You have been started on a medication Xifaxan. Take 1 tablet twice a day. ? We have stopped your medication ferrous sulfate. ?WE HAVE STOPPED YOUR MEDICATION METFORMIN. DO NOT TAKE. ? We have stopped your medication omeprazole and pantoprazole. ? Continue the rest of your medication listed below. ? You will have to restrict your daily liquid intake to 1.5 Litres / 50 ounces per day. This includes water, teas, coffees and soups. ? You will have to follow a low salt diet for the rest of your life. This means no [place] food or fast food. ? You will have to take your weight daily. If your weight increases by more than 3-5 pounds in 1-2 days, take an extra water pill that day. ? You will have to measure your blood pressure daily. If the top number is less than 100, do not take your blood pressure medications that day. ? Keep a log of your blood pressures to take to your primary doctor and preforming machine operator. ?Continue follow-up with your paper inserter within 1-2 weeks of discharge ? Continue follow-up with your remote sensing analyst, Dr. Diaz within 1-2 weeks of discharge. ? Continue follow-up with your liver transplant center. - Follow up with your primary care physician within 1 week of discharge. If you do not have a primary care physician, please follow up with the [facility] Residents clinic ([phone]) ? If you experience any new, worsening or persistent symptoms either call your primary doctor, or dial 911 or present to the emergency department. We are grateful to be able to participate in Mr. Chakraborty's care. We wish him the best. Plan of care discussed with Attending Dr. Sheriff and PGY2 Dr. Madi lGaser MD PGY 1 Disclaimer: This note was dictated by speech recognition. Minor errors in forging roll operator may be present due to voice recognition software. Time Spent with Patient Time attestation: Total time spent providing and/or coordinating discharge services: Time spent: Greater than 30 minutes (43) Exam Vital Signs Temp Pulse Resp BP Pulse Ox O2 Del Method O2 Flow Rate 97.8 F 89 18 108/84 99 Room Air 2 08/03/24 12:45 08/03/24 14:45 08/03/24 12:45 08/03/24 14:45 08/03/24 12:45 08/03/24 12:00 08/02/24 04:00 Narrative Exam Constitutional Alert, oriented x 3 and comfortable HEENT Vision grossly intact. Patent nares. Trachea midline Respiratory Chest normal on inspection, gynecomastia and clear auscultation bilaterally Cardiovascular S1 and S2 audible, RRR. No murmurs carotid bruit. No gross JVD. Abdominal Soft and non tender to palpation in all quadrants. BS + Genitourinary No bladder tenderness, no flank pain. Normal to palpation Musculoskeletal Extremities tone within normal limits. No LE edema. Left arm AV fistula, thrill palpated. Neurological CN II - XII grossly intact. Extremity motor and sensation grossly intact. Skin Warm, dry and intact. No apparent lesions. Psychiatric Patient has good affect, is cooperative Discharge Plan Plan Patient Disposition: HOME (Self Care) Patient condition on transfer: Stable and Benefits outweigh risks Care Plan Goals: ? Continue taking insulin Tresiba, 10 units/day. If you have any other long- acting insulin at home do not take. ? Take 3 units threetimes a day 30 minutes before meals. ? Take 30 mL of lactulose 3 times a day to achieve 2?3 bowel movements per day. You can increase up to 45 mL 4 times a day as necessary. If you have more than 3 bowel movements a day hold your lactulose for that day only. ? Continue taking propranolol 1 tablet twice a day. ? You have been started on a medication Xifaxan. Take 1 tablet twice a day. ? We have stopped your medication ferrous sulfate. ?WE HAVE STOPPED YOUR MEDICATION METFORMIN. DO NOT TAKE. ? We have stopped your medication omeprazole and pantoprazole. ? Continue the rest of your medication listed below. ? You will have to restrict your daily liquid intake to 1.5 Litres / 50 ounces per day. This includes water, teas, coffees and soups. ? You will have to follow a low salt diet for the rest of your life. This means no [place] food or fast food. ? You will have to take your weight daily. If your weight increases by more than 3-5 pounds in 1-2 days, take an extra water pill that day. ? You will have to measure your blood pressure daily. If the top number is less than 100, do not take your blood pressure medications that day. ? Keep a log of your blood pressures to take to your primary doctor and preforming machine operator. ?Continue follow-up with your paper inserter within 1-2 weeks of discharge ? Continue follow-up with your remote sensing analyst, Dr. Diaz within 1-2 weeks of discharge. ? Continue follow-up with your liver transplant center. - Follow up with your primary care physician within 1 week of discharge. If you do not have a primary care physician, please follow up with the [facility] Residents clinic ([phone]) ? If you experience any new, worsening or persistent symptoms either call your primary doctor, or dial 911 or present to the emergency department. -CONTINUE TOMANDO INSULINA TRESIBA 10 UNIDADES/ELY.SI TIENE INSULINA EN CASA NO USE -TOME 3 UNIDADES NANCY VECES AL ELY 30 MINUTOS ANTES DE COMER -TOME 3O ML DE LACTULOSE 3 VECES AL ELY PARA QUE PUEDA HACER DEL ESCUZADO 2-3 VECES AL ELY. PUEDE AUMENTAR A 45ML CUANDO NECESARIO.SI TIENE MAS DE 3 VECES AL ELY DISCONTINUE PARA KING ELY NOMAS -CONTINUE PROPANOLOL 1 TABLETA DOS VECES AL ELY -TOME XIFAXAN 1 TABLETA DOS VECES AL ELY -DISCONTINUAMOS EL MEDICAMENTO FERROUS SULFATE Y METFORMIN. NO TOME -DICONTINUAMOS OMEPRAZOLE Y PANTOPRAZOLE -CONTINUE CON LOS RESTOS DE MEDICAMENTOS DE LA LISTA -TIENE RESTRICCIONES DE LIQUIDOS DIARIOS A 1.5 LITROS/50 OUNCES POR ELY. ESTO INCLUYE AGUA,JAMAAL,CAFE Y SOPA -TIENE QUE SEGUIR DIETA BAJA EN ELIGIO EL KALEB DE COFFEY FER. ESTO SE IGNIFICA NO COMIDA [place] O COMIDA RAPIDA -TIENE QUE PESARSE DIARIO. SI COFFEY PESO AUMENTA MAS DE 3-5 LIBRAS EN 1-2 ALICEA TOME BREEZY PASTILLA DE AGUA EXTRA KING ELY -TIENE QUE RAFI PRESION DIARIA, SI EL TRISTON DE ARRIBA ES MENOS DE 100 NO TOME MEDICAMENTO DE PRESION KING ELY -MANTENGA BREEZY LISTA DE ELISE PRESIONES PARA MOSTRAR A COFFEY MEDICO Y CARDIOLOGO -SUZANNE NORM CON EL GASTROENTEROLOGO ENTRE 1-2 SEMANAS DE DADO DE DACIA -SUZANNE NORM CON EL NEPHROLOGO ENTRE 1-2 SEMANAS DE DADO DE DACIA -CONTINUE CON NORM CON EL [facility] -SUZANNE NORM CON COFFEY DOCTOR PRIMARIO ENTRE 1 SEMANA DE DADO DE DACIA. SI NO TIENE PUEDE HACER NORM EN LA [facility] CON RESIDENTES [phone] -SI TIENE NUEVAS O PEORES O SIMTOMAS PERSISTENTES LLAME AL MEDICO O AL 911 O VENGA A LA CASI DE EMERGENCIA Prescriptions/Referrals Prescriptions/Med Rec: New propranolol 10 mg Tablet 10 mg PO BID 30 Days Qty: 60 0RF lactulose 10 gram/15 mL Solution 20 g PO TID 30 Days Qty: 2700 2RF Xifaxan 550 mg Tablet 550 mg PO BID 30 Days Qty: 60 2RF insulin lispro [Admelog SoloStar U-100 Insulin] 100 unit/mL insulin pen 3 unit subcut TIDWMEAL Qty: 15 0RF (DME) pen needle, diabetic [Easy Comfort Pen Bowlus] 31 gauge x 1/4 needle See Rx Instructions .Route Qty: 100 0RF Rx Instructions: As directed. Substitutions allowed insulin degludec 200 unit/mL (3 mL) insulin pen 20 unit subcut QDAY Qty: 9 0RF Continued levothyroxine 50 mcg tablet 50 mcg PO DAILY cholecalciferol (vitamin D3) 50 mcg (2,000 unit) capsule 1 cap PO QDAY Patient Comments: TOME 1 C PSULA POR V A ORAL TODOS LOS D thiamine HCl (vitamin B1) [Vitamin B-1] 100 mg tablet 100 mg PO QDAY spironolactone 50 mg tablet 100 mg PO DAILY 30 Days Qty: 60 0RF Discontinued propranolol 10 mg tablet 10 mg PO DAILY pantoprazole 40 mg tablet,delayed release (DR/EC) 40 mg PO DAILY ferrous sulfate [FeroSul] 325 mg (65 mg iron) tablet 325 mg PO Q OTHER DAY Qty: 30 0RF metformin 500 mg tablet 500 mg PO BID Qty: 60 0RF lactulose 20 gram/30 mL solution 40 g PO TID Qty: 5500 0RF furosemide [Lasix] 40 mg tablet 40 mg PO QDAY Qty: 30 0RF omeprazole 20 mg capsule,delayed release(DR/EC) 20 mg PO QDAY Referrals: Randall Ward MD [Primary Care Provider] - Patient/Caregiver Discharge Instructions Education Materials: Lactulose oral solution, Hepatic Encephalopathy Print Language: Syriac Stand Alone Forms: [employer] Award Info., Patient Portal Info Letter Discharge Order Discharge Orders: Discharge (Routine); Ordered 08/03/24 Ordered By: Lawrence Glaser Quality Discharge Quality Measures VTE prophylaxis (SCDs) MD Attestestation MD Attestation I reviewed labs, imaging, EKG, home medications and prior available records. Face to face evaluation was performed by me. I have personally examined the patient and discussed assessment and plan with the IM team. I reviewed the resident note and agree with the plan with exceptions as below. Acute encephalopathy Hepatic encephalopathy, liver cirrhosis Uncontrolled diabetes mellitus with hyperglycemia, insulin-dependent type 2 Pancytopenia, likely in setting of liver disease ESRD on hemodialysis Continue lactulose and rifaximin. Dose lactulose based on goal of 3 or less bowel movements Continue insulin 20 units long-acting and 3 units with meals. Monitor fingersticks Monitor CBC as outpatient Avoid alcohol use Continue outpatient hemodialysis Time spent is 40 minutes. More than 50% of the time was spent on patient education and coordination of care.
[2024-08-03] MEDS: ONDANSETRON INJ 2 MG/ML INJ 2 ML 4 MG IV (14:55)
--- NOTE | 2024-08-03 15:00 | PC.NURSE ---
bp low pt denies all s/s of hypotension, will admin prn albumin and cont. to monitor
[2024-08-03] MEDS: ALBUMIN HUMAN 25% IVPB 25 GM/100 ML BTL IV (15:02)
--- NOTE | 2024-08-03 15:46 | PC.NURSE ---
Bp low pt denies complaints, uf goal lowered to 1.7l as tolerated will monitor
== END 2024-08-03 18:03 | disposition home or self-care (01) | DRG 432 ==
LOC: SERX 22:16 → SERHOLD 22:43 → S3NX 08-02 05:58 → SERHOLD 08-02 05:58
PROVIDERS: Internal Medicine; Registered Nurse General Practice; Student in an Organized Health Care Education/Training Program; Admitting Provider Internal Medicine; Emergency Provider Emergency Medicine; PCP Family Medicine; Visit Provider Student in an Organized Health Care Education/Training Program
DX: K70.30 Alcoholic cirrhosis of liver without ascites (principal); G93.41 Metabolic encephalopathy; N18.6 End stage renal disease; D61.818 Other pancytopenia; I12.0 Hypertensive chronic kidney disease with stage 5 chronic kidney disease or end stage renal disease; D68.9 Coagulation defect, unspecified; E11.22 Type 2 diabetes mellitus with diabetic chronic kidney disease; E03.9 Hypothyroidism, unspecified; K76.82 Hepatic encephalopathy; K59.00 Constipation, unspecified; E11.65 Type 2 diabetes mellitus with hyperglycemia; Z79.4 Long term (current) use of insulin; Z99.2 Dependence on renal dialysis
CPT/HCPCS: 36415; 70450; 71045; 76700; 80048; 80053; 80061; 80074; 80076; 80307; 81001; 82140; 82270; 83036; 83615; 83735; 83880; 84100; 84443; 84484; 85025; 85610; 85730; 86706; 87081; 93005; 99285; J1815; J1938; J2405; J2470; P9047; A9270

== ENCOUNTER 2024-10-11 11:56 | Emergency (ER) | payer MEDICARE, MEDICAID, SELFPAY ==
[2024-10-11] VITALS (8 sets, daily range): BP systolic 143–164; BP diastolic 77–89; PULSE 56–68; RESP 15–19; TEMP 36.7–37; O2SAT 99–100; BMI 25.0
--- NOTE | 2024-10-11 12:51 | PD.EDRME ---
Rapid Medical Screening Exam RME Arrival date/time: 10/11/24 11:56 Chief Complaint: General Adult/Misc Complain Vital signs: Vital Signs Temperature 98.6 F 10/11/24 12:10 Pulse Rate 60 10/11/24 12:10 Respiratory Rate 17 10/11/24 12:10 Blood Pressure 146/81 H 10/11/24 12:10 Pulse Oximetry (%) 99 10/11/24 12:10 Oxygen Delivery Method Room Air 10/11/24 12:10 99% room air Vital signs reviewed by provider: Yes RME Narrative: 53-year-old male presents to the ED with a complaint of cirrhosis and potentially encephalopathy. Patient describes a headache and dizziness and a sensation of generalized malaise.
[2024-10-11 13:22] LABS: Basophils # (Auto) 0.0 Thou/mm3 (0.0-0.2); Basophils % (Auto) 1 % (0-2.5); Eosinophils # (Auto) 0.1 Thou/mm3 (0.0-0.5); Eosinophils % (Auto) 3 % (0-10); Hematocrit 44.2 % (41.0-53.0); Hemoglobin 15.1 g/dL (13.5-16.0); Immature Granulocytes Auto 0.02 Thou/mm3 (0.00-0.00); Lymphocytes # (Auto) 0.8 Thou/mm3 (1.0-4.8); Lymphocytes % (Auto) 19 % (10-50); Mean Corpuscular HGB Conc 34.2 g/dl (31.0-37.0); Mean Corpuscular Hemoglobin 37.1 pg (25.0-35.0); Mean Corpuscular Volume 109 fL (80-100); Monocytes # (Auto) 0.3 Thou/mm3 (0.0-0.8); Monocytes % (Auto) 8 % (0-12); Neutrophils # (Auto) 2.9 Thou/mm3 (1.8-7.7); Neutrophils % (Auto) 69 % (37-80); Nucleated Red Blood Cell # 0.00 Thou/mm3 (0.00-0.00); Nucleated Red Blood Cell % 0 /100 WBC (0); Platelet Count 96 Thou/mm3 (140-440); RDW Standard Deviation 56.7 fL (35.1-43.9); Red Blood Count 4.07 Miln/mm3 (4.50-5.90); White Blood Count 4.2 Thou/mm3 (3.8-10.6)
[2024-10-11 13:44] LABS: Ammonia 102 uMol/L (11-32)
[2024-10-11 13:48] LABS: Alanine Aminotransferase 27 U/L (10-49); Albumin, Serum 3.5 gm/dL (3.5-5.0); Albumin/Globulin Ratio 0.9 (1.2-2.2); Alkaline Phosphatase 221 U/L (46-116); Anion Gap 8 (7-16); Aspartate Amino Transferase 46 U/L (0-34); BUN/Creatinine Ratio 9 Ratio (12-20); Bilirubin,Total 3.7 mg/dL (0.3-1.2); Blood Urea Nitrogen 41 mg/dL (9-23); Calcium 9.3 mg/dL (8.3-10.6); Calcium (Corrected) 9.7 mg/dL (8.5-10.1); Carbon Dioxide 22.7 mMol/L (20.0-31.0); Chloride 105 mMol/L (98-107); Creatinine (Component) 4.7 mg/dL (0.6-1.3); Estimated Creatinine Clearance 15.4 mL/min (>60); Globulin 3.8 gm/dL (2.3-3.5); Glucose 373 mg/dL (74-106); LDH (Lactate Dehydrogenase) 168 U/L (120-246); Lipase 70 U/L (12-53); Osmolality,Calculated 297 (275-295); Potassium 5.8 mMol/L (3.4-5.1); Procalcitonin 0.30 ng/ml (0.0-0.49); Sodium 136 mMol/L (136-145); Total Protein 7.3 gm/dL (5.7-8.2); eGFR 14 See Note
[2024-10-11 14:35] LABS: Collection Type, Urine Clean Catch
[2024-10-11 14:51] LABS: Bilirubin,Urine Negative (Negative); Blood,Urine Negative (Negative); Clarity,Urine Clear (Clear/Hazy); Color,Urine Lt-Yellow (Lt Yel-Yel); Glucose, Urine 3+ (Negative); Ketones,Urine Negative (Negative); Leukocyte Esterase,Urine Positive (Negative); Nitrite,Urine Negative (Negative); PH,Urine 6.0 (5.0-7.0); Protein,Urine Negative (Neg - Trace); RBC,Urine 4 /hpf (0-3); Specific Gravity,Urine 1.012 (1.001-1.035); Squamous Epithelial Cell,Urine 1 /hpf (0-5); Urobilinogen,Urine Negative mg/dL (0.0-1.0); WBC,Urine 103 /hpf (0-5)
--- NOTE | 2024-10-11 18:38 | EDNOTE_ITS ---
ED General RME/HPI General Chief complaint: General Adult/Misc Complain Stated complaint: PT FEELS BAD; SKIPPED DIALYSIS YESTERDAY; WEAK Time Seen by Provider: 10/11/24 18:11 Arrival date/time: 10/11/24 11:56 CC: Mild dizziness, states a decreased appetite HPI states that the patient is also received his 20 of lactulose today but has not eaten since yesterday. The patient is on dialysis Thursday and Thursday but missed dialysis yesterday. Denies altered mental status loss of consciousness or altered level of consciousness. Patient is awake alert and oriented no slurred speech denies chest pain shortness of breath or difficulty breathing. RME / HPI RME / HPI narrative: 53-year-old male presents to the ED with a complaint of cirrhosis and potentially encephalopathy. Patient describes a headache and dizziness and a sensation of generalized malaise. Related Data Home Medications ?Medication ?Instructions ?Recorded ?Confirmed levothyroxine 50 mcg tablet 50 mcg PO DAILY 07/04/21 0 08/02/24 cholecalciferol (vitamin D3) 50 1 cap PO QDAY 08/19/21 08/19/21 mcg (2,000 unit) capsule thiamine HCl (vitamin B1) 100 mg 100 mg PO QDAY 08/02/24 tablet (Vitamin B-1) Previous Rx's ?Medication ?Instructions ?Recorded insulin degludec 200 unit/mL (3 20 unit (0.1 mL) subcu t QDAY #9 mL 08/03/24 mL) subcutaneous pen insulin lispro 100 unit/mL 3 unit (0.03 mL) subcut TID WMEAL 08/03/24 subcutaneous pen (Admelog SoloStar #15 mL U-100 Insulin lispro) lactulose 10 gram/15 mL oral 20 g (30 mL) PO TID 30 da ys #2,700 08/03/24 solution mL pen needle, diabetic 31 gauge x #100 ea 08/03/2403/12 (Easy Comfort Pen [place]) rifaximin 550 mg tablet (Xifaxan) 550 mg PO BID 30 day s #60 tabs 08/03/24 spironolactone 50 mg tablet 100 mg (2 x 50 mg) PO WAI Y 30 08/03/24 days #60 tabs Allergies Allergy/AdvReac Type Severity Reaction Status Date / Time No Known Allergies Allergy Verified 10/11/24 12:03 Review of Systems Review of Systems Narrative Review of Systems: GEN: No fever, no chills, no weight loss EYES: No discharge, no visual changes, no pain HEENT: No ear pain, no congestion, no sore throat PULM: No shortness of breath, no cough, no congestion CV: No chest pain, no dyspnea on exertion, no palpitations GI: No nausea, no vomiting, no diarrhea, no pain, no constipation : No frequency, no urgency, no dysuria MUSC/SKEL: No joint pain, no back pain SKIN: No rash PSYCH: No hallucinations, no depression HEME/LYMPH: No easy bleeding or bruising tendencies NEURO: No weakness, no headache Past Medical History Past Medical History NEUROLOGIC: Positive Seizures CARDIAC: Positive Hypertension; Negative Cardiac Disorders or Congestive Heart Failure RESPIRATORY: Negative Chronic Obstructive Pulmonary Disease (COPD) or Asthma GASTROINTESTINAL: Positive Gastrointestinal Disorders, Cirrhosis, Gastrointestinal Bleed and Ulcer GENITOURINARY: Positive Renal Disease and Dialysis ENDOCRINE: Negative Diabetes Mellitus Type 1 or Diabetes Mellitus Type 2 HEMATOLOGIC: Negative Blood Disorders or Sickle Cell Disease OTHER HISTORY: Negative Autoimmune Disease, Blood Transfusions, Blood Transfusion Reaction or Anesthesia Reactions Family History FAMILY HISTORY: Negative Family Psychiatric Problems, Family Respiratory Disorders, Family Cardiac Disorders, Family Gastrointestinal Problems, Family Cancer, Family Surgery or Family Anesthesia Reaction Social History SMOKING STATUS: Never smoker SECOND HAND EXPOSURE: No SUBSTANCE USE: does not use ED Exam Narrative Physical exam: [General: Not in any acute distress Head normocephalic HEENT: Eyes pupils are PERRLA EOMs are intact mouth pink dry membranes uvula is midline swallow symmetrical phonation is normal all the subsystems of ATTR within acceptable limits Neck is supple nontender Chest equal chest rise nontender to palpation Respiratory: Clear to auscultation no wheezes crackles or rubs CV: Rate rhythm is regular no murmurs rubs or clicks Abdomen is soft nontender no masses positive bowel sounds all 4 quadrants Back: No CVA tenderness no spinous process tenderness from cervical spine thoracic and lumbar spine Skin: Intact no petechiae rash induration ulceration or crepitus Extremities: Dialysis shunt good thrill left upper arm no surrounding erythema edema or exudate. Moving all extremities against resistance cap refill less than 2 seconds neurosensory intact Neuro: Awake alert oriented x3 Glascow coma 15 no focal deficits] Course Course Course Narrative: Patient's case review shows that there is elevation of the potassium from 5.8- 5.9 with atypical staff. Discussed the case with Dr Salgado, on-call preparation supervisor who said to use Veltassa or leukoma to hold the potassium level until dialysis tomorrow. Pharmacy states these are nonformulary and they are not available. Patient given Kayexalate, reviewed the notes of the patient's preparation supervisor Dr. Holder. Quality Measures none Orders Category Date Time Status EKG (ED ONLY) *Do not use* NOW Care 10/11/24 22:38 Completed Saline [Insert IV] NOW Care 10/11/24 18:41 Active EKG (ED Only) Stat Exams 10/11/24 22:38 Draft Ammonia Stat Lab 10/11/24 13:12 Completed CBC Stat Lab 10/11/24 13:12 Completed Comprehensive Metabolic Panel Stat Lab 10/11/24 13:12 Completed LDH (Lactate Dehydrogenase) Stat Lab 10/11/24 13:12 Completed Lipase Stat Lab 10/11/24 13:12 Completed Potassium Stat Lab 10/11/24 20:58 Completed Procalcitonin Stat Lab 10/11/24 13:12 Completed Urinalysis Stat Lab 10/11/24 14:00 Completed ALBUTEROL RT 0.5ml [Proventil Rt 0.5ml] Med 10/11/24 19:28 Discontinued 10 mg INH X1 ONE ALBUTEROL RT 0.5ml [Proventil Rt 0.5ml] Med 10/11/24 18:41 Discontinued 2.5 mg INH X1 ONE Calcium Gluconate 10% Inj Med 10/11/24 18:41 Discontinued 1 gm IV X1 ONE Dextrose 50% Syr [D50w Syringe Abboject] Med 10/11/24 18:41 Discontinued 25 ml IVP X1 ONE Insulin Regular Med 10/11/24 18:41 Discontinued 5 unit IV X1 ONE Lactulose Syrup [Enulose Syrup] Med 10/11/24 18:28 Discontinued 40 gm PO X1 ONE Lokelma Med 10/11/24 21:41 Pending 10 gm PO NOW ONE Ondansetron Odt [Zofran Odt] Med 10/11/24 18:41 Discontinued 4 mg PO X1 ONE Sod Polystyrene Sulfon Susp [Kayexalate Susp] Med 10/11/24 21:50 Discontinued 30 gm PO X1 ONE Sodium Chloride Rt Elif 0.9% [NS Rt Elif 0.9%] Med 10/11/24 18:41 Active 3 ml INH PRN PRN Sodium Chloride Rt Elif 0.9% [NS Rt Elif 0.9%] Med 10/11/24 19:28 Active 3 ml INH PRN PRN Vital Signs Vital signs: Vital Signs Temperature 98.6 F 10/11/24 12:10 Pulse Rate 60 10/11/24 12:10 Respiratory Rate 17 10/11/24 12:10 Blood Pressure 146/81 H 10/11/24 12:10 Pulse Oximetry (%) 99 10/11/24 12:10 Oxygen Delivery Method Room Air 10/11/24 12:10 Discharge Plan Plan Patient Disposition: HOME (Self Care) Patient condition on transfer: Stable Prescriptions/Referrals Prescriptions/Med Rec: No Action levothyroxine 50 mcg tablet 50 mcg PO DAILY cholecalciferol (vitamin D3) 50 mcg (2,000 unit) capsule 1 cap PO QDAY Patient Comments: TOME 1 C PSULA POR V A ORAL TODOS LOS D thiamine HCl (vitamin B1) [Vitamin B-1] 100 mg tablet 100 mg PO QDAY lactulose 10 gram/15 mL Solution 20 g PO TID 30 Days Qty: 2700 2RF Xifaxan 550 mg Tablet 550 mg PO BID 30 Days Qty: 60 2RF insulin lispro [Admelog SoloStar U-100 Insulin] 100 unit/mL insulin pen 3 unit subcut TIDWMEAL Qty: 15 0RF (DME) pen needle, diabetic [Easy Comfort Pen [place]] 31 gauge x 1/4 needle See Rx Instructions .Route Qty: 100 0RF Rx Instructions: As directed. Substitutions allowed spironolactone 50 mg tablet 100 mg PO DAILY 30 Days Qty: 60 0RF insulin degludec 200 unit/mL (3 mL) insulin pen 20 unit subcut QDAY Qty: 9 0RF Referrals: Randall Ward MD [Primary Care Provider] - In 1 week Problem List Clinical Impression: Hyperkalemia, Increased ammonia level Patient/Caregiver Discharge Instructions Education Materials: ED Hyperkalemia Additional Instructions: Follow-up with dialysis tomorrow as stated, if you do not make dialysis make sure you come to the emergency room for reevaluation. Print Language: Macedonian Stand Alone Forms: Mago Award Info., Work/School Release, Patient Portal Info Letter IMELDA/EUGENIA Supervising Physician IMELDA/EUGENIA Supervising Physician: Main Ivan ENP [facility] Clinical Information Provided by patient Medical Records Reviewed [facility] Meds/Rx Considered, not Ordered None Labs/Rad/Tests considered, not Ordered None Chronic Illness/Social Conditions Add or document further as needed: Cirrhosis dialysis EKG EKG not done EKG Interpretation narrative: EKG performed at 2247 shows ventricular rate of 65 AK interval 190 QRS of 95 QTc of 432 there are no peaked T's there is normal sinus rhythm. Lab Interpretation Lab(s) interpretation(s): CBC shows no acute leukocytosis anemia thrombocytopenia CMP shows a potassium of 5.8 BUN of 41 creatinine of 4.7 T. bili of 3.7 AST 46 ALT T of 27 alk phos of 221 ammonia of 102 Lipase of 70 Procalcitonin of 0.30. Medication Administration(s) Medication Administration History Non-Formulary Medication (Lokelma) 10 gm PO NOW ONE Stop: 10/11/24 21:42 Sodium Chloride (Sodium Chloride Rt Elif 0.9% 3 Ml Nebu) 3 ml INH PRN PRN PRN Reason: SOLN Stop: 11/10/24 18:40 Sodium Chloride (Sodium Chloride Rt Elif 0.9% 3 Ml Nebu) 3 ml INH PRN PRN PRN Reason: SOLN Stop: 11/10/24 19:27 Last Admin: 10/11/24 19:35 Dose: 3 ml Documented By: GB Discontinued Medications Albuterol (Albuterol Rt 2.5 Mg/0.5 Ml Nebu) 2.5 mg INH X1 ONE Stop: 10/11/24 18:42 Last Admin: 10/11/24 20:52 Dose: Not Given Documented By: CVL Non-Admin Reason: Cancelled by Provider Albuterol (Albuterol Rt 2.5 Mg/0.5 Ml Nebu) 10 mg INH X1 ONE Stop: 10/11/24 19:29 Last Admin: 10/11/24 19:35 Dose: 10 mg Documented By: GB Calcium Gluconate (Calcium Gluconate 10% Inj 1 Gm/10 Ml Vial) 1 gm IV X1 ONE Stop: 10/11/24 18:42 Last Admin: 10/11/24 19:02 Dose: 1 gm Documented By: CG Comments: Given slow IVP through 20g RAC Dextrose (Dextrose 50%-Water Inj 50 Ml Syringe) 25 ml IVP X1 ONE Stop: 10/11/24 18:42 Last Admin: 10/11/24 19:01 Dose: 25 ml Documented By: CG Insulin Human Regular (Insulin Hum Regular 1 Unit/0.01 Ml (Per Unit)) 5 unit IV X1 ONE Stop: 10/11/24 18:42 Last Admin: 10/11/24 19:05 Dose: 5 unit Documented By: CG Co-signed By: DARRYL Lactulose (Lactulose Syrup 20 Gm/30 Ml Udc) 40 gm PO X1 ONE; Protocol Stop: 10/11/24 18:29 Last Admin: 10/11/24 19:12 Dose: 40 gm Documented By: AYUSH Ondansetron HCl (Ondansetron Odt 4 Mg Tabrap) 4 mg PO X1 ONE; Protocol Stop: 10/11/24 18:42 Last Admin: 10/11/24 19:06 Dose: 4 mg Documented By: AYUSH Sodium Polystyrene Sulfonate (Sod Polystyrene Sulfon Susp 15 Gm/60 Ml Btl) 30 gm PO X1 ONE Stop: 10/11/24 21:51 Last Admin: 10/11/24 22:28 Dose: 30 gm Documented By: AYUSH(2)
[2024-10-11] MEDS: DEXTROSE 50%-WATER INJ 50 ML SYRINGE 25 ML IVP (19:01)
[2024-10-11] MEDS: CALCIUM GLUCONATE 10% INJ 1 GM/10 ML VIAL IV (19:02)
[2024-10-11] MEDS: INSULIN HUM REGULAR 1 UNIT/0.01 ML (PER UNIT) 5 UNIT IV (19:05)
[2024-10-11] MEDS: ONDANSETRON ODT 4 MG TABRAP PO (19:06)
[2024-10-11] MEDS: LACTULOSE SYRUP 20 GM/30 ML UDC 40 GM PO (19:12)
[2024-10-11] MEDS: ALBUTEROL RT 2.5 MG/0.5 ML NEBU 10 MG INH (19:35)
[2024-10-11] MEDS: SODIUM CHLORIDE RT SOL 0.9% 3 ML NEBU INH (19:35)
[2024-10-11 21:17] LABS: Potassium 5.9 mMol/L (3.4-5.1)
[2024-10-11] MEDS: SOD POLYSTYRENE SULFON SUSP 15 GM/60 ML BTL 30 GM PO (22:28)
--- NOTE | 2024-10-11 22:38 | EKG_ITS ---
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
== END 2024-10-11 23:06 | disposition home or self-care (01) ==
PROVIDERS: Physician Assistant; Registered Nurse General Practice; Emergency Provider Emergency Medicine; PCP Family Medicine
DX: E87.5 Hyperkalemia (principal); I10 Essential (primary) hypertension; R42 Dizziness and giddiness; Z91.158 Patient's noncompliance with renal dialysis for other reason; Z99.2 Dependence on renal dialysis
CPT/HCPCS: 36415; 80053; 81001; 82140; 83615; 83690; 84132; 84145; 85025; 93005; 94640; 99283; J0612; J1815; Q0162; A9270

== ENCOUNTER 2024-12-14 10:15 | Inpatient (IN) | payer MEDICARE, MEDICAID, SELFPAY ==
[2024-12-14] VITALS (17 sets, daily range): BP systolic 83–154; BP diastolic 47–88; PULSE 51–87; RESP 16–20; TEMP 35.3–36.8; O2SAT 98–100; BMI 24.2
--- NOTE | 2024-12-14 10:51 | EKG_ITS ---
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
--- NOTE | 2024-12-14 10:54 | PD.EDAMS ---
Altered Mental Status RME/HPI General Chief Complaint: Altered Mental Status Stated Complaint: AMS Time Seen by Provider: 12/14/24 10:53 Arrival date/time: 12/14/24 10:15 RME / HPI RME / HPI narrative: 54 year old male with history of hypertension, cirrhosis, ESRD on HD presents to the ED BIBA for evaluation of altered mental status today. Per medics, last known well is unknown and patient was last dialyzed 5 days ago Thursday. Patient is altered and unable to provide any additional history. Related Data Home Medications ?Medication ?Instructions ?Recorded ?Confirmed levothyroxine 50 mcg tablet 50 mcg PO DAILY 07/04/21 08/02/24 cholecalciferol (vitamin D3) 50 1 cap PO QDAY 08/19/21 08/19/21 mcg (2,000 unit) capsule thiamine HCl (vitamin B1) 100 mg 100 mg PO QDAY 08/02/24 08/02/24 tablet (Vitamin B-1) Previous Rx's ?Medication ?Instructions ?Recorded insulin degludec 200 unit/mL (3 20 unit (0.1 mL) subcut QDAY #9 mL 08/03/24 mL) subcutaneous pen insulin lispro 100 unit/mL 3 unit (0.03 mL) subcut TIDWMEAL 08/03/24 subcutaneous pen (Admelog SoloStar #15 mL U-100 Insulin lispro) lactulose 10 gram/15 mL oral 20 g (30 mL) PO TID 30 days #2,700 08/03/24 solution mL pen needle, diabetic 31 gauge x #100 ea 08/03/24/ (Easy Comfort Pen Cord) rifaximin 550 mg tablet (Xifaxan) 550 mg PO BID 30 days #60 tabs 08/03/24 spironolactone 50 mg tablet 100 mg (2 x 50 mg) PO DAILY 30 08/03/24 days #60 tabs Allergies Allergy/AdvReac Type Severity Reaction Status Date / Time No Known Allergies Allergy Verified 10/11/24 12:03 Review of Systems Review of Systems ROS Unobtainable: unobtainable due to mental status Past Medical History Past Medical History NEUROLOGIC: Positive Seizures CARDIAC: Positive Hypertension GASTROINTESTINAL: Positive Gastrointestinal Disorders, Cirrhosis, Gastrointestinal Bleed and Ulcer GENITOURINARY: Positive Renal Disease and Dialysis Social History SMOKING STATUS: Never smoker SECOND HAND EXPOSURE: No SUBSTANCE USE: does not use ED Exam Narrative Physical exam: GENERAL APPEARANCE: Very sedated, slow to respond HEENT: Normocephalic, atraumatic; EOMI; mucous membranes pink, moist; oropharynx clear NECK: Supple LUNGS: CTABL; no wheezes, no rales, no rhonchi HEART: Regular rate, regular rhythm; normal S1, S2; no murmurs ABDOMEN: non distended; normal BS; soft, no tenderness, no guarding, no rebound; no masses, no organomegaly, no hernia BACK: no CVA tenderness EXTREMITIES: atraumatic; no edema NEUROLOGIC: Very sedated, slow to respond; cranial nerves II-XII grossly intact PSYCHIATRIC: appropriate mood and affect SKIN: warm, dry, normal color; no rashes Course Course Course Narrative: [id number]: I spoke with hospitalist team B for admission. Quality Measures none Orders Category Date Time Status Industrial Insulator NOW Care 12/14/24 10:51 Active EKG (ED ONLY) *Do not use* NOW Care 12/14/24 10:[address] head/brain wo con Stat Exams 12/14/24 11:28 Completed EKG (ED Only) Stat Exams 12/14/24 10:51 Draft Alcohol, Blood Medical Stat Lab 12/14/24 11:18 Completed Ammonia Stat Lab 12/14/24 11:18 Completed B-Type Natriuretic Peptide Stat Lab 12/14/24 11:18 Completed CBC Stat Lab 12/14/24 12:26 Completed Comprehensive Metabolic Panel Stat Lab 12/14/24 11:18 Completed Drug Screen,Urine Stat Lab 12/14/24 10:52 Ordered Magnesium Stat Lab 12/14/24 11:18 Completed Partial Thromboplastin Time Stat Lab 12/14/24 12:26 Completed Prothrombin Time with INR Stat Lab 12/14/24 12:26 Completed Troponin I Stat Lab 12/14/24 11:18 Completed UA, C/S IF [Urinalysis, C/S if Indicated] Stat Lab 12/14/24 10:52 Ordered Lactulose Syrup [Enulose Syrup] Med 12/14/24 12:10 Discontinued 20 gm PO X1 ONE Vital Signs Vital signs: Vital Signs Temperature 98.2 F 12/14/24 10:47 Pulse Rate 56 L 12/14/24 10:47 Respiratory Rate 18 12/14/24 10:47 Blood Pressure 137/83 H 12/14/24 10:47 Pulse Oximetry (%) 98 12/14/24 10:47 Oxygen Delivery Method Room Air 12/14/24 10:47 Pulse ox is 98% on room air which is adequate. Altered Mental Status MDM Narrative MDM Narrative:: Dayron Ayanna alba Mack scribing for and in the presence of Dr. Fajardo. Patient data External records reviewed:: [facility] previous records and EMS form Clinical information provided by:: EMS Social determinants that could affect healthcare access:: none Patient has the following chronic illnesses:: hypertension, cirrhosis, ESRD on HD How is presenting disease/condition affected by chronic disease/condition?: exacerbated by Evaluation data The following diagnostics were reviewed and interpreted by me:: lab results, radiology exam(s) and EKG tracing(s) (EKG @ 11:07AM. Sinus bradycardia, rate 57, prolonged QT interval, no STEMI. ) Lab and/or radiology exams considered but not ordered:: None Interpretation Summary: Ordering Physician: Nely Fajardo MD Date of Service: 12/14/24 Procedure(s): CT head/brain wo [facility] Accession Number(s): [id number] cc: Randall Ward MD; Ryan Herrera MD; Nely Fajardo MD~ Examination: CT brain head without contrast. 2-D sagittal coronal reconstructions Date and time of exam: December 14, 2024, 1244 hours INDICATIONS: Altered mental status today CTDI: vol (mGy): 43.5 DLP: (mGycm): 889 Technique: Multiple CT axial sections of the brain have been obtained, 5 mm slice thickness. Contrast has not been administered. 2-D sagittal, coronal reconstructions have been obtained Low dose protocols were performed. One or more of the following dose reduction techniques were used; automated exposure control, adjustment of the mA and/or KV according to patient size, use of iterative reconstruction technique. Findings: No significant ventricular enlargement. Intra-axial or extra-axial hemorrhage density is not seen. No mass effect or midline shift Basal cisterns are not remarkable. Fourth ventricle is midline. Cranial vault intact. Impression: Negative for acute hemorrhage, mass effect or midline shift Advise clinical correlation and follow-up accordingly Dictated By: Ryan Herrera MD Signed By: <Electronically signed by Ryan Herrera MD in OV> 12/14/24 1318 Medications / Prescriptions Medications or Prescriptions considered but not ordered:: None Medication administrations:: Medication Administration History Discontinued Medications Lactulose (Lactulose Syrup 20 Gm/30 Ml Udc) 20 gm PO X1 ONE; Protocol Stop: 12/14/24 12:11 Last Admin: 12/14/24 13:44 Dose: 20 gm Documented By: ED See above Consultations Consultation(s) initiated? (list below): Yes Consultation #1 (Physician, Specialty, Details): See course Diagnosis Differential diagnosis altered mental status: altered mental status, delirium, subarachnoid hemorrhage, sepsis and other (hepatic encephalopathy ) Most likely diagnosis given after review of the tests above:: Hepatic encephalopathy Admission Indicated Admission indicated?: indicated Admission Request Was there a request for admission?: Yes Admission Attestation Admission request attestation: Discussed case with [] from Hospitalist service regarding admission. Discussed patients ED course, exam findings, labs, and radiology results. The Hospitalist [agrees,declines] to accept the patient for admission. Disposition Plan Disposition Plan: Admit Discharge Plan Plan Patient Disposition: Admit Acute Care w/in Hospital Prescriptions/Referrals Prescriptions/Med Rec: No Action levothyroxine 50 mcg tablet 50 mcg PO DAILY cholecalciferol (vitamin D3) 50 mcg (2,000 unit) capsule 1 cap PO QDAY Patient Comments: VALE 1 C PSULA POR V A ORAL TODOS LOS D thiamine HCl (vitamin B1) [Vitamin B-1] 100 mg tablet 100 mg PO QDAY lactulose 10 gram/15 mL Solution 20 g PO TID 30 Days Qty: 2700 2RF Xifaxan 550 mg Tablet 550 mg PO BID 30 Days Qty: 60 2RF insulin lispro [Admelog SoloStar U-100 Insulin] 100 unit/mL insulin pen 3 unit subcut TIDWMEAL Qty: 15 0RF (DME) pen needle, diabetic [Easy Comfort Pen Cord] 31 gauge x 1/4 needle See Rx Instructions .Route Qty: 100 0RF Rx Instructions: As directed. Substitutions allowed spironolactone 50 mg tablet 100 mg PO DAILY 30 Days Qty: 60 0RF insulin degludec 200 unit/mL (3 mL) insulin pen 20 unit subcut QDAY Qty: 9 0RF Referrals: Randall Ward MD [Primary Care Provider, Family Practice] - In 1 week Problem List Clinical Impression: Hepatic encephalopathy Patient/Caregiver Discharge Instructions Print Language: Albanian Stand Alone Forms: Mago Award Info., Patient Portal Info Letter
--- NOTE | 2024-12-14 11:28 | XR_ITS ---
Examination: CT brain head without contrast. 2-D sagittal coronal reconstructions Date and time of exam: December 14, 2024, 1244 hours INDICATIONS: Altered mental status today CTDI: vol (mGy): 43.5 DLP: (mGycm): 889 Technique: Multiple CT axial sections of the brain have been obtained, 5 mm slice thickness. Contrast has not been administered. 2-D sagittal, coronal reconstructions have been obtained Low dose protocols were performed. One or more of the following dose reduction techniques were used; automated exposure control, adjustment of the mA and/or KV according to patient size, use of iterative reconstruction technique. Findings: No significant ventricular enlargement. Intra-axial or extra-axial hemorrhage density is not seen. No mass effect or midline shift Basal cisterns are not remarkable. Fourth ventricle is midline. Cranial vault intact. Impression: Negative for acute hemorrhage, mass effect or midline shift Advise clinical correlation and follow-up accordingly
[2024-12-14 11:43] LABS: B-Type Natriuretic Peptide 91 pg/mL (0-100)
[2024-12-14 11:56] LABS: Alanine Aminotransferase 13 U/L (10-49); Albumin, Serum 3.3 gm/dL (3.5-5.0); Albumin/Globulin Ratio 0.9 (1.2-2.2); Alcohol, Blood Medical < 3.0 mg/dL (0-10.0); Alkaline Phosphatase 182 U/L (46-116); Anion Gap 12 (7-16); Aspartate Amino Transferase 22 U/L (0-34); BUN/Creatinine Ratio 10 Ratio (12-20); Bilirubin,Total 3.0 mg/dL (0.3-1.2); Blood Urea Nitrogen 45 mg/dL (9-23); Calcium 9.4 mg/dL (8.3-10.6); Calcium (Corrected) 10.0 mg/dL (8.5-10.1); Carbon Dioxide 20.2 mMol/L (20.0-31.0); Chloride 109 mMol/L (98-107); Creatinine (Component) 4.4 mg/dL (0.6-1.3); Estimated Creatinine Clearance 16.9 mL/min (>60); Globulin 3.6 gm/dL (2.3-3.5); Glucose 313 mg/dL (74-106); Magnesium 2.1 mg/dL (1.6-2.6); Osmolality,Calculated 304 (275-295); Potassium 5.4 mMol/L (3.4-5.1); Sodium 141 mMol/L (136-145); Total Protein 6.9 gm/dL (5.7-8.2); Troponin I < 0.002 ng/mL (0.0-0.045); eGFR 15 See Note
[2024-12-14 12:05] LABS: Ammonia 223 uMol/L (11-32)
[2024-12-14 12:34] LABS: Basophils # (Auto) 0.0 Thou/mm3 (0.0-0.2); Basophils % (Auto) 0 % (0-2.5); Eosinophils # (Auto) 0.1 Thou/mm3 (0.0-0.5); Eosinophils % (Auto) 2 % (0-10); Hematocrit 33.0 % (41.0-53.0); Hemoglobin 11.6 g/dL (13.5-16.0); Immature Granulocytes Auto 0.02 Thou/mm3 (0.00-0.00); Lymphocytes # (Auto) 0.9 Thou/mm3 (1.0-4.8); Lymphocytes % (Auto) 24 % (10-50); Mean Corpuscular HGB Conc 35.2 g/dl (31.0-37.0); Mean Corpuscular Hemoglobin 37.3 pg (25.0-35.0); Mean Corpuscular Volume 106 fL (80-100); Monocytes # (Auto) 0.3 Thou/mm3 (0.0-0.8); Monocytes % (Auto) 7 % (0-12); Neutrophils # (Auto) 2.4 Thou/mm3 (1.8-7.7); Neutrophils % (Auto) 66 % (37-80); Nucleated Red Blood Cell # 0.00 Thou/mm3 (0.00-0.00); Nucleated Red Blood Cell % 0 /100 WBC (0); Platelet Count 98 Thou/mm3 (140-440); RDW Standard Deviation 56.8 fL (35.1-43.9); Red Blood Count 3.11 Miln/mm3 (4.50-5.90); White Blood Count 3.7 Thou/mm3 (3.8-10.6)
[2024-12-14 13:02] LABS: INR 1.2 (0.9-1.3); Partial Thromboplastin Time 28.7 Seconds (22.0-36.0); Prothrombin Time 12.7 Seconds (9.0-12.2)
[2024-12-14] MEDS: LACTULOSE SYRUP 20 GM/30 ML UDC PO (13:44)
--- NOTE | 2024-12-14 13:58 | PC.NURSE ---
Pt.'s son here Bobo Ward, pt. son states pt. missed dialysis on Thursday because pt. stated he wasn't feeling well, Bobo states he missed dialysis yesterday because pt. was altered. Bobo states pt.'s usual dialysis days are ,W,. Bobo states pt. takes Lactulose at home daily and has been taking it, Bobo states pt. has 2 to 3 BM's a day but hasn't been getting better. Pt.'s dialysis access is on left arm.
--- NOTE | 2024-12-14 15:20 | ESHP_ITS ---
<Statement entered by Jose Walker MD - 12/14/24 16:55> 54-year-old male with past medical history of hypertension, cirrhosis secondary to alcohol use disorder but sober for the past 6 years, ESRD on HD presented to the ED for altered mental status. In the ED, patient was mildly hypertensive, bradycardic heart rate of 56, afebrile and satting 98 on room air. Pertinent lab findings included WBC of 3.7, hemoglobin 11.6, platelet of 98, BUN 45, creatinine 4.4, glucose of 313, ammonia 223. Urinalysis did not show any signs of infection, imaging findings including head CT was negative for any acute findings and EKG showed sinus bradycardia. Patient will be admitted for the treatment of decompensated liver cirrhosis with hepatic encephalopathy. Will initiate lactulose regimen, rifaximin along with cirrhosis medications such as IV ceftriaxone for SBP prophylaxis, spironolactone for blood pressure control and ultrasound of the abdomen to rule out any ascites. I have personally seen and examined the patient. I agree with the resident's assessment and plan as documented below. Jose Walker DO PGY-2 Internal Medicine - [facility] Documentation for date of: 12/14/24 HPI History of Present Illness History of present illness: 54-year-old male with a past medical history of insulin-dependent type 2 diabetes mellitus, cirrhosis, and ESRD on HD (Thursday/Thursday/Thursday) follows Dr. Woods who presented to ED 12/14 via ambulance for evaluation of altered mental status x 1 day. According to the patient's son, the patient has been lethargic and confused for the past day. The son is unsure if the patient has been taking lactulose consistently at home. The patient was last dialyzed 5 days ago (12/09).Today patient reported x1 non-bloody emesis after eating. Last bowel movement was today. He denies any complaints of chest pain, shortness of breath, constipation, or diarrhea. ED course: Initial vitals in ED include temperature 98.2, pulse 56, blood pressure 137/83, respirations 18, O2 saturation 98% on room air. Notable labs include WBC 3.7, hemoglobin 11.6, sodium 141, potassium 5.4, BUN 45, creatinine 4.4, eGFR 15, glucose 313, total bilirubin 3.0, AST 22, ALT 13, alk phos 182, ammonia 223, BNP 91. Head CT was negative for acute hemorrhage, mass effect or midline shift. Past medical history: As stated above. Allergies: No known drug allergy Family history: Noncontributory. Social history: Prior heavy alcohol user, no alcohol use for the past 6 years, no smoking, no illicit drug use. Patient admitted for hepatic encephalopathy secondary to decompensated liver cirrhosis. Review of Systems Review of Systems Narrative Review of Systems: All systems reviewed negative unless stated otherwise above. Exam Vital Signs Temp Pulse Resp BP Pulse Ox O2 Del Method 98.0 F 58 L 16 154/76 H 100 Room Air 12/14/24 13:50 12/14/24 13:50 12/14/24 13:50 12/14/24 13:50 12/14/24 13:50 12/14/24 13:50 Narrative Exam General: Not in acute distress, slow to respond, disoriented, scleral icterus. HEENT: normocephalic, atraumatic; eomi; mucous membranes pink, moist; oropharynx clear, neck supple. Lungs: Good air entry bilaterally; no wheezes, no rales, no rhonchi. Heart: regular rate, regular rhythm; normal s1, s2; no murmurs. Abdomen: Mildly distended; normal bs; soft, no tenderness, no guarding, no rebound; no masses, no organomegaly, no hernia, asterixis present. Extremities: atraumatic; no edema. Neurologic: Alert and oriented x 2. No focal neurologic deficits, cranial nerves II-XII grossly intact. Psychiatric: appropriate mood and affect. Skin: warm, dry, normal color; no rashes. Results: Labs 12/15/24 05:02 12/15/24 05:02 Labs: Short CBC 12/14/24 Range/Units 12:26 WBC 3.7 L (3.8-10.6) Thou/mm3 Hgb 11.6 L (13.5-16.0) g/dL Hct 33.0 L (41.0-53.0) % Plt Count 98 L (140-440) Thou/mm3 BMP 12/14/24 11:18 Sodium 141 Potassium 5.4 H Chloride 109 H Carbon Dioxide 20.2 BUN 45 H Creatinine 4.4 H* Glucose 313 H Calcium 9.4 Cardiac Enzymes 12/14/24 Range/Units 11:18 Troponin I < 0.002 (0.0-0.045) ng/mL Liver Function 12/14/24 Range/Units 11:18 Total Bilirubin 3.0 H (0.3-1.2) mg/dL AST 22 (0-34) U/L ALT 13 (10-49) U/L Alkaline Phosphatase 182 H (46-116) U/L Albumin 3.3 L (3.5-5.0) gm/dL Quality Measures Quality Measures none Medications Home Medications and Allergies Home Medications ?Medication ?Instructions ?Recorded ?Confirmed ?Type levothyroxine 50 mcg tablet 50 mcg PO DAILY 07/04/21 1 History cholecalciferol (vitamin D3) 50 1 cap PO QDAY 08/19/21 12/15/24 History mcg (2,000 unit) capsule thiamine HCl (vitamin B1) 100 mg 100 mg PO QDAY 12/15/24 History tablet (Vitamin B-1) Allergies Allergy/AdvReac Type Severity Reaction Status Date / Time No Known Allergies Allergy Verified 10/11/24 12:03 Visit Medications Acetaminophen (Acetaminophen 325 Mg Tablet) 650 mg PO Q6H PRN PRN Reason: Fever >101.5 Stop: 01/13/25 14:38 Acetaminophen (Acetaminophen 325 Mg Tablet) 650 mg PO Q6H PRN PRN Reason: PAIN SCALE 1-3 (mild Stop: 01/13/25 14:38 Dextrose (Dextrose 50%-Water Inj 50 Ml Syringe) 25 ml IV Q15MIN PRN PRN Reason: BG 50-70 responsive npo pt Stop: 01/13/25 14:50 Dextrose (Dextrose 50%-Water Inj 50 Ml Syringe) 50 ml IV Q15MIN PRN PRN Reason: BG <50 OR BG <70 & pt unresponsive Stop: 01/13/25 14:50 Glucagon (Glucagon Inj 1 Mg Vial) 1 mg IM Q15MIN PRN PRN Reason: BG <70, and no IV access Lactulose (Lactulose Syrup 20 Gm/30 Ml Udc) 30 gm PO TID ZAKI; Protocol Stop: 01/13/25 14:59 Discontinued Medications Lactulose (Lactulose Syrup 20 Gm/30 Ml Udc) 20 gm PO X1 ONE; Protocol Stop: 12/14/24 12:11 Last Admin: 12/14/24 13:44 Dose: 20 gm Assessment & Plan Plan 54-year-old male with a past medical history of insulin-dependent type 2 diabetes mellitus, cirrhosis, and ESRD on HD (Thursday/Thursday/Thursday) follows Dr. Woods who presented to ED 12/14 via ambulance for evaluation of altered mental status x 1 day. Patient admitted for hepatic encephalopathy secondary to decompensated liver cirrhosis. #Hepatic encephalopathy 2/2 #Decompensated liver cirrhosis Extensive prior history of alcohol use, no alcohol use for the past 6 years Patient has had decompensated liver cirrhosis earlier this year according to son, required hospitalization MELD NA score 26 points (19.6% estimated 3-month mortality) Child class B (9 points) Asterixis present on physical exam, scleral icterus as well Ammonia elevated at 223 T. bili 3.0 Plan ? Lactulose 200 g OR 3 times daily until bowel movements approximately 3 and can then taper down ?Resume home rifaximin 550 mg twice daily ?Started ceftriaxone 1 g for SBP prophylaxis ?Spironolactone 100 mg daily ?Abdominal ultrasound to evaluate for ascites ?Follow-up on blood cultures, urine cultures ?Follow-up on urine drug screen #ESRD, on hemodialysis M// #Hyperkalemia Follows Dr. Woods Missed 2 dialysis session earlier this week (/), last completed dialysis on 12/09 Potassium 5.4 Creatinine 4.4 eGFR 15 Plan ? Nephrology consulted, Dr. Woods, appreciate recs ? Hemodialysis today ? IV regular insulin 5 units x 1 given for hyperkalemia #Insulin-dependent type 2 diabetes Last A1c unknown Plan ? Blood glucose checks ? Insulin sliding scale started ? Hypoglycemia protocol in place ? Insulin degludec 20 units starting tomorrow a.m. #Hypothyroidism On home levothyroxine 50 mcg daily Plan ? Resumed home med ? TSH in a.m. Health Maintenance: Diet: Renal diet GI prophylaxis: Protonix 40 mg daily DVT prophylaxis: Heparin 5000 units twice daily Antibiotics: Ceftriaxone 1 g daily CODE STATUS: Full Disposition: Med/tele Case discussed with my attending Dr. Feliciano, and senior resident, Dr. Denise Torres MD PGY-1 Attending Provider Attestation/Addendum I attest that I was physically present for the evaluation, physical examination, lab and imaging review of the patient with the residents. I discussed the case with the residents and agree with the findings and plans of care as documented above. After examination of the patient and review of the clinical data I feel that this patient needs admission to the hospital for further treatment/evaluation. Marie Feliciano MD
[2024-12-14] MEDS: cefTRIAXone/D5w 1gm IV premix 1 GM/50 ML BAG IV (15:57)
--- NOTE | 2024-12-14 15:58 | XR_ITS ---
Examination: Abdomen sonogram, Limited Date and time of exam: December, 1952 hours INDICATIONS: Abdominal distention this week Technique: Real-time tan scale transabdominal sonographic images of the upper abdomen obtained. Findings: No ascitic fluid IMPRESSION: No ascitic fluid
--- NOTE | 2024-12-14 16:05 | PC.NURSE ---
PT TAKEN TO DIALYSIS. ANTIBIOTICS PAUSED.
[2024-12-14 16:45] LABS: Folate 22.25 ng/mL (>5.38); Vitamin B12 1854 pg/mL (211-911)
[2024-12-14] MEDS: INSULIN LISPRO (AdmeLOG) 1 UNIT/0.01 ML UNIT SC (21:19)
[2024-12-14] MEDS: HEPARIN SOD INJ 5000 UNIT/ML VIAL SC (21:19)
[2024-12-15] VITALS (9 sets, daily range): BP systolic 100–126; BP diastolic 71–81; PULSE 64–83; RESP 17–20; TEMP 36–36.6; O2SAT 99–100; BMI 20.9
[2024-12-15] MEDS: LACTULOSE SYRUP 20 GM/30 ML UDC PO ×2 (01:04→05:41)
[2024-12-15] MEDS: LEVOTHYROXINE SODIUM 25 MCG TABLET 50 MCG PO (05:38)
[2024-12-15 05:54] LABS: Basophils # (Auto) 0.0 Thou/mm3 (0.0-0.2); Basophils % (Auto) 0 % (0-2.5); Eosinophils # (Auto) 0.0 Thou/mm3 (0.0-0.5); Eosinophils % (Auto) 1 % (0-10); Hematocrit 39.2 % (41.0-53.0); Hemoglobin 14.3 g/dL (13.5-16.0); Immature Granulocytes Auto 0.01 Thou/mm3 (0.00-0.00); Lymphocytes # (Auto) 0.9 Thou/mm3 (1.0-4.8); Lymphocytes % (Auto) 13 % (10-50); Mean Corpuscular HGB Conc 36.5 g/dl (31.0-37.0); Mean Corpuscular Hemoglobin 37.7 pg (25.0-35.0); Mean Corpuscular Volume 103 fL (80-100); Monocytes # (Auto) 0.5 Thou/mm3 (0.0-0.8); Monocytes % (Auto) 8 % (0-12); Neutrophils # (Auto) 5.3 Thou/mm3 (1.8-7.7); Neutrophils % (Auto) 79 % (37-80); Nucleated Red Blood Cell # 0.00 Thou/mm3 (0.00-0.00); Nucleated Red Blood Cell % 0 /100 WBC (0); Platelet Count 117 Thou/mm3 (140-440); RDW Standard Deviation 54.8 fL (35.1-43.9); Red Blood Count 3.79 Miln/mm3 (4.50-5.90); White Blood Count 6.8 Thou/mm3 (3.8-10.6)
[2024-12-15 06:01] LABS: Glucose Estimated Average 163 mg/dL (80-131); Hemoglobin A1C 7.3 % Hgb (4.8-6.0)
[2024-12-15 06:02] LABS: INR 1.2 (0.9-1.3); Prothrombin Time 13.0 Seconds (9.0-12.2)
[2024-12-15 06:37] LABS: Alanine Aminotransferase 17 U/L (10-49); Albumin, Serum 4.1 gm/dL (3.5-5.0); Albumin/Globulin Ratio 0.9 (1.2-2.2); Alkaline Phosphatase 219 U/L (46-116); Anion Gap 16 (7-16); Aspartate Amino Transferase 31 U/L (0-34); BUN/Creatinine Ratio 7 Ratio (12-20); Bilirubin,Total 4.7 mg/dL (0.3-1.2); Blood Urea Nitrogen 28 mg/dL (9-23); Calcium 10.1 mg/dL (8.3-10.6); Calcium (Corrected) 10.1 mg/dL (8.5-10.1); Carbon Dioxide 22.6 mMol/L (20.0-31.0); Chloride 94 mMol/L (98-107); Creatinine (Component) 3.8 mg/dL (0.6-1.3); Estimated Creatinine Clearance 18.1 mL/min (>60); Free T4 (Free Thyroxine) 1.38 ng/dL (0.89-1.76); Globulin 4.6 gm/dL (2.3-3.5); Glucose 287 mg/dL (74-106); Magnesium 1.8 mg/dL (1.6-2.6); Osmolality,Calculated 281 (275-295); Phosphorous 5.1 mg/dL (2.4-5.1); Potassium 5.0 mMol/L (3.4-5.1); Sodium 133 mMol/L (136-145); Thyroid Stimulating Hormone 2.73 uIU/mL (0.55-4.78); Total Protein 8.7 gm/dL (5.7-8.2); eGFR 18 See Note
[2024-12-15] MEDS: INSULIN LISPRO (AdmeLOG) 1 UNIT/0.01 ML UNIT SC ×3 (07:45→17:25)
[2024-12-15] MEDS: INSULIN DEGLUDEC 5 UNIT/0.05 ML (PER 5 UNITS) 20 UNIT SC (09:38)
[2024-12-15] MEDS: cefTRIAXone/D5w 1gm IV premix 1 GM/50 ML BAG IV (09:39)
[2024-12-15] MEDS: HEPARIN SOD INJ 5000 UNIT/ML VIAL SC ×2 (09:39→21:10)
[2024-12-15] MEDS: PANTOPRAZOLE 40 MG TABLET PO (09:40)
[2024-12-15] MEDS: ONDANSETRON INJ 2 MG/ML INJ 2 ML 4 MG IVP (10:35)
--- NOTE | 2024-12-15 11:39 | PC.NURSE ---
Spoke with Dr. Walker at 1140 regarding patient's blood glucose of [address] stated he will put in new orders.
--- NOTE | 2024-12-15 12:24 | PC.SS ---
SS met with patient regarding his d/c plan. Pt is alert/oriented. Pt was admitted for Hepatic Encephalopathy. Pt confirmed demographic and contact information is correct on facesheet. Pt resides with and kids. Pt ambulates independently without assistance or DME. Pt is ok with all ADLs. Patient?s pharmacy of choice is [facility] on [address] Pt named his son, Bobo Ward and , Renée Ward medical decision maker if he is unable. SS provided verbal options for d/c to home or SNF. Patient?s choice is to return home upon d/c. Pt states he is diabetic, has glucometer, and test strips. Pt states he is on dialysis and his chair time is MWF at 2pm at [facility] D[facility] on [address] in [place]. SS confirmed with [facility] Dialysis patient's chair time and pt transports himself. Pt followed up with PCP 1 month ago. D/C plan: Return home Next of Kin: Bobo Ward, son, phone# [phone] or Renée Ward, , phone# [phone] PCP: Dr. Randall Ward from [facility] Address: Correct on facesheet
[2024-12-15] MEDS: INSULIN HUM REGULAR 1 UNIT/0.01 ML (PER UNIT) 15 UNIT SC (12:29)
[2024-12-15] MEDS: INSULIN LISPRO (AdmeLOG) 1 UNIT/0.01 ML UNIT 3 UNIT SC ×2 (12:30→17:26)
--- NOTE | 2024-12-15 12:55 | PD.NEPHCONS ---
History of Present Illness Data of Consult Requesting Physician: Marie Feliciano MD Primary Care Provider: Randall Ward MD Consult Narrative History of present illness: 54-year-old male with past medical history of hypertension, cirrhosis secondary to alcohol use disorder but sober for the past 6 years, ESRD on HD presented to the ED for altered mental status. In the ED, patient was mildly hypertensive, bradycardic heart rate of 56, afebrile and satting 98 on room air. Nephrology is consulted to arrange HD cc:: cc: Marie Feliciano MD Review of Systems Review of Systems Systems Reviewed: All systems reviewed, normal except as documented Meds Home Medications and Allergies Home Medications ?Medication ?Instructions ?Recorded ?Confirmed ?Type levothyroxine 50 mcg tablet 50 mcg PO DAILY 07/04/21 12/15/24 History cholecalciferol (vitamin D3) 50 1 cap PO QDAY 08/19/21 12/15/24 History mcg (2,000 unit) capsule thiamine HCl (vitamin B1) 100 mg 100 mg PO QDAY 08/02/24 12/15/24 History tablet (Vitamin B-1) Allergies Allergy/AdvReac Type Severity Reaction Status Date / Time No Known Allergies Allergy Verified 10/11/24 12:03 Exam Vital Signs Temp Pulse Resp BP Pulse Ox O2 Del Method 97.0 F 73 18 116/71 99 Room Air 12/15/24 12:00 12/15/24 12:00 12/15/24 12:00 12/15/24 12:00 12/15/24 12:00 12/15/24 12:00 Narrative Exam General: Not in acute distress, slow to respond, disoriented, scleral icterus. HEENT: normocephalic, atraumatic; eomi; mucous membranes pink, moist; oropharynx clear, neck supple. Lungs: Good air entry bilaterally; no wheezes, no rales, no rhonchi. Heart: regular rate, regular rhythm; normal s1, s2; no murmurs. Abdomen: Mildly distended; normal bs; soft, no tenderness, no guarding, no rebound; no masses, no organomegaly, no hernia, asterixis present. Extremities: atraumatic; no edema. Neurologic: Alert and oriented x 2. Results Labs 12/15/24 05:02 12/15/24 05:02 Labs: Short CBC 12/15/24 Range/Units 05:02 WBC 6.8 D (3.8-10.6) Thou/mm3 Hgb 14.3 D (13.5-16.0) g/dL Hct 39.2 L (41.0-53.0) % Plt Count 117 L (140-440) Thou/mm3 BMP 12/15/24 05:02 Sodium 133 L Potassium 5.0 Chloride 94 L Carbon Dioxide 22.6 BUN 28 H Creatinine 3.8 H D Glucose 287 H Calcium 10.1 Liver Function 12/15/24 Range/Units 05:02 Total Bilirubin 4.7 H D (0.3-1.2) mg/dL AST 31 (0-34) U/L ALT 17 (10-49) U/L Alkaline Phosphatase 219 H D (46-116) U/L Albumin 4.1 D (3.5-5.0) gm/dL Assessment & Plan Assessment and plan (1) ESRD (end stage renal disease): Status: Acute Assessment and plan: Arrange dialysis will c/w dialysis 3 times a week (2) HE (hepatic encephalopathy): Status: Acute
--- NOTE | 2024-12-15 13:26 | ESPR_ITS ---
<Statement entered by Jose Walker MD - 12/15/24 18:12> Patient seen and assessed in hospital bed denies having any concerning symptoms at this time. Patient has had 1 bowel movement so far; as a result increasing lactulose dose. Patient able to answer questions appropriately and is alert oriented x 3. Patient's blood cultures are still pending and we will monitor for any acute changes. Patient had dialysis session completed and we expect discharge within the next 24 to 48 hours. I have personally seen and examined the patient. I agree with the resident's assessment and plan as documented below. Jose Walker DO PGY-2 Internal Medicine - [facility] Documentation for date of: 12/15/24 Subjective Subjective Interval history: Patient seen at bedside. No acute overnight events. Patient had 1 episode of vomiting with no blood. Patient had 1 BM this morning. Was not given [place] lactulose in ED as they did not have this formulation available however has been getting the 20 mg oral 3 times daily dosing. Patient mentioned that he feels more alert and oriented today and not complaining of any abdominal distention, abdominal pain, shortness of breath, and chest pain Exam Vital Signs Temp Pulse Resp BP Pulse Ox O2 Del Method 97.0 F 73 18 116/71 99 Room Air 12/15/24 12:00 12/15/24 12:00 12/15/24 12:00 12/15/24 12:00 12/15/24 12:00 12/15/24 12:00 Narrative Exam General: Not in acute distress, slow to respond, disoriented, scleral icterus. HEENT: normocephalic, atraumatic; EOMI; mucous membranes pink, moist; oropharynx clear, neck supple. Lungs: Good air entry bilaterally; no wheezes, no rales, no rhonchi. Heart: regular rate, regular rhythm; normal s1, s2; no murmurs. Abdomen: Mildly distended; normal bs; soft, no tenderness, no guarding, no rebound; no masses, no organomegaly, no hernia, asterixis present. AV fistula present in left arm Extremities: atraumatic; no edema. Neurologic: Alert and oriented x 3. No focal neurologic deficits, cranial nerves II-XII grossly intact. Psychiatric: appropriate mood and affect. Skin: warm, dry, normal color; no rashes. Objective Labs 12/15/24 05:02 12/15/24 05:02 Labs: Laboratory Results - last 24 hr 12/14/24 12/15/24 11:18 05:02 WBC 6.8 D RBC 3.79 L Hgb 14.3 D Hct 39.2 L MCV 103 H MCH 37.7 H MCHC 36.5 RDW Std Deviation 54.8 H Plt Count 117 L Neut % (Auto) 79 Lymph % (Auto) 13 [place] % (Auto) 8 Eos % (Auto) 1 Baso % (Auto) 0 Neut # (Auto) 5.3 Lymph # (Auto) 0.9 L [place] # (Auto) 0.5 Eos # (Auto) 0.0 Baso # (Auto) 0.0 Immature Gran # (Auto) 0.01 H Absolute Nucleated RBC 0.00 Immature Gran % 0 Nucleated RBC % 0 PT 13.0 H INR 1.2 Sodium 133 L Potassium 5.0 Chloride 94 L Carbon Dioxide 22.6 Anion Gap 16 BUN 28 H Creatinine 3.8 H D Estim Creat Clear Calc 18.1 L eGFR 18 L BUN/Creatinine Ratio 7 L Glucose [address] Glu mg/dL 163 H Hemoglobin A1c 7.3 H Calculated Osmolality 281 Calcium 10.1 Corrected Calcium 10.1 Phosphorus 5.1 Magnesium 1.8 Total Bilirubin 4.7 H D AST 31 ALT 17 Alkaline Phosphatase 219 H D Total Protein 8.7 H Albumin 4.1 D Globulin 4.6 H Albumin/Globulin Ratio 0.9 L Vitamin B12 1854 H Folate 22.25 TSH 2.73 Free T4 1.38 Quality Measures Quality Measures none Assessment & Plan Assessment Current Active Medications: Generic Name Dose Route Start Last Admin Trade Name [place] PRN Reason Stop Dose Admin Acetaminophen 650 mg 12/14/24 14:39 Acetaminophen 325 Mg Tablet PO 01/13/25 14:38 Q6H PRN Fever >101.5 Acetaminophen 650 mg 12/14/24 14:39 Acetaminophen 325 Mg Tablet PO 01/13/25 14:38 Q6H PRN PAIN SCALE 1-3 (mild Dextrose 25 ml 12/14/24 14:51 Dextrose 50%-Water Inj 50 Ml Syringe IV 01/13/25 14:50 Q15MIN PRN BG 50-70 responsive npo pt Dextrose 50 ml 12/14/24 14:51 Dextrose 50%-Water Inj 50 Ml Syringe IV 01/13/25 14:50 Q15MIN PRN BG <50 OR BG <70 & pt unresponsive Glucagon 1 mg 12/14/24 14:51 Glucagon Inj 1 Mg Vial IM Q15MIN PRN BG <70, and no IV access Heparin Sodium (Porcine) 5,000 unit 12/14/24 21:00 12/15/24 09:39 Heparin Sod Inj 5000 Unit/Ml Vial SC 12/28/24 20:59 5,000 unit Q12HR ZAKI Administration Insulin Degludec 20 unit 12/15/24 09:00 12/15/24 09:38 Insulin Degludec 5 Unit/0.05 Ml (Per 5 Units) SC 01/14/25 08:59 20 unit QDAY ZAKI Administration Insulin Human Lispro 0 unit 12/14/24 17:00 12/15/24 12:33 Insulin Lispro (Admelog) 1 Unit/0.01 Ml Unit SC 01/13/25 16:59 4 unit AC ZAKI Administration Protocol Insulin Human Lispro 3 unit 12/15/24 12:00 12/15/24 12:30 Insulin Lispro (Admelog) 1 Unit/0.01 Ml Unit SC 01/14/25 11:59 3 unit TIDWMEAL ZAKI Administration Lactulose 30 gm 12/15/24 14:00 Lactulose Syrup 20 Gm/30 Ml Udc PO 01/14/25 13:59 TID ZAKI Protocol Levothyroxine Sodium 50 mcg 12/15/24 06:00 12/15/24 05:38 Levothyroxine Sodium 25 Mcg Tablet PO 01/14/25 05:59 50 mcg ACBR ZAKI Administration Ondansetron HCl 4 mg 12/15/24 09:39 12/15/24 10:35 Ondansetron Inj 2 Mg/Ml Inj 2 Ml IVP 01/14/25 09:38 4 mg Q6HR PRN Administration NAUSEA OR VOMITING Protocol Pantoprazole Sodium 40 mg 12/15/24 09:00 12/15/24 09:40 Pantoprazole 40 Mg Tablet PO 01/14/25 08:59 40 mg QDAY ZAKI Administration Rifaximin 550 mg 12/14/24 21:00 12/15/24 09:40 Rifaximin 550 Mg Tablet PO 12/21/24 20:59 550 mg BID ZAKI Administration Plan 54-year-old male with a past medical history of insulin-dependent type 2 diabetes mellitus, cirrhosis, and ESRD on HD (Thursday/Thursday/Thursday) follows Dr. Woods who presented to ED 12/14 via ambulance for evaluation of altered mental status x 1 day. Patient admitted for hepatic encephalopathy secondary to decompensated liver cirrhosis. #Hepatic encephalopathy 2/2 #Decompensated liver cirrhosis Extensive prior history of alcohol use, no alcohol use for the past 6 years Patient has had decompensated liver cirrhosis earlier this year according to son, required hospitalization MELD NA score 26 points (19.6% estimated 3-month mortality) Child class B (9 points) Asterixis present on physical exam, scleral icterus as well Ammonia elevated at 223 T. bili 3.0 Plan ? Lactulose 30g 3 times daily until bowel movements approximately 3 and can then taper down ?Resume home rifaximin 550 mg twice daily ?Spironolactone HOLD ?Abdominal ultrasound to evaluate for ascites ?Follow-up on blood cultures, urine cultures ?Follow-up on urine drug screen #ESRD, on hemodialysis // #Hyperkalemia Follows Dr. Woods Missed 2 dialysis session earlier this week (/), last completed dialysis on 12/09 Potassium 5.4 -> 5.0 Creatinine 4.4 -> 3.8 Plan ? Nephrology consulted, Dr. Woods, appreciate recs ? Hemodialysis 12/14 #Insulin-dependent type 2 diabetes Last A1c 7.3 12/15 Plan ? Blood glucose checks ? Insulin sliding scale started ? Hypoglycemia protocol in place ? Insulin degludec 20 units qAM. ? Insulin lispro 3u pre-meals #Hypothyroidism On home levothyroxine 50 mcg daily Plan ? Resumed home med Health Maintenance: Diet: Renal diet GI prophylaxis: Protonix 40 mg daily DVT prophylaxis: Heparin 5000 units twice daily Antibiotics: none CODE STATUS: Full Disposition: Med/tele Case discussed with my attending Dr. Feliciano, and senior resident, Dr. Denise Torres MD PGY-1 Attending Provider Attestation/Addendum I attest that I was physically present for the evaluation, physical examination, lab and imaging review of the patient with the residents. I discussed the case with the residents and agree with the findings and plans of care as documented above. Patient seen and examined at bedside this morning.Mentation has improved significantly, appears alert and oriented x 3, able to answer question and follow commands appropriately. Had 1 episode of vomiting. Patient was not able to receive rectal lactulose in the ED and was switched to oral lactulose. Despite being on lactulose, patient only had about 1 bowel movement also noted to have uptrending bilirubin, 4.7 from 3.0 yesterday. Underwent hemodialysis yesterday with nephrology. We will increase the lactulose to 30 g 3 times daily and monitor for bowel movement. Abdominal ultrasound negative for ascites, we will discontinue IV Rocephin. Continues to be on rifaximin levothyroxine and insulin regimen. Has been started on diet and tolerating well. We will monitor for for bowel movements, bilirubin levels, anticipate discharge in next 24 to 48 hours. Marie Feliciano MD
[2024-12-15] MEDS: LACTULOSE SYRUP 20 GM/30 ML UDC 30 GM PO ×2 (14:08→21:11)
--- NOTE | 2024-12-15 16:03 | PC.PT ---
Chart reviewed. Attempt to initiate PT evaluation at 1600. Patient states he has been ambulating to the restroom already without AD x I. This is confirmed by nursing staff. Will cancel PT evaluation. Patient is at his PLOF.
[2024-12-15 17:20] LABS: Collection Type, Urine Catheter
[2024-12-15 17:36] LABS: Bilirubin,Urine Negative (Negative); Blood,Urine 2+ (Negative); Color,Urine Drk-Yellow (Lt Yel-Yel); Culture Indicated,Urine Contaminated; Glucose, Urine 2+ (Negative); Ketones,Urine Negative (Negative); Leukocyte Esterase,Urine Positive (Negative); Nitrite,Urine Negative (Negative); PH,Urine 5.5 (5.0-7.0); Protein,Urine 2+ (Neg - Trace); RBC,Urine 59 /hpf (0-3); Specific Gravity,Urine 1.022 (1.001-1.035); Squamous Epithelial Cell,Urine 11 /hpf (0-5); Urobilinogen,Urine Negative mg/dL (0.0-1.0); WBC,Urine 2376 /hpf (0-5)
[2024-12-15 17:43] LABS: Amphetamine/Methamp Scrn,U Negative (Negative); Barbiturate Screen,Urine Negative (Negative); Benzodiazepines Screen,Urine Negative (Negative); Benzoylecgonine Screen, Ur Negative (Negative); Fentanyl Screen,Urine Negative (Negative); Opiate Screen,Urine Negative (Negative); THC Screen,Urine Negative (Negative)
[2024-12-15 17:44] LABS: Clarity,Urine Cloudy (Clear/Hazy)
[2024-12-16] VITALS (24 sets, daily range): BP systolic 84–138; BP diastolic 46–89; PULSE 75–109; RESP 16–18; TEMP 36–36.8; O2SAT 94–100
[2024-12-16] MEDS: LEVOTHYROXINE SODIUM 25 MCG TABLET 50 MCG PO (05:24)
[2024-12-16 05:49] LABS: Basophils # (Auto) 0.0 Thou/mm3 (0.0-0.2); Basophils % (Auto) 0 % (0-2.5); Eosinophils # (Auto) 0.2 Thou/mm3 (0.0-0.5); Eosinophils % (Auto) 3 % (0-10); Hematocrit 34.0 % (41.0-53.0); Hemoglobin 12.9 g/dL (13.5-16.0); Immature Granulocytes Auto 0.02 Thou/mm3 (0.00-0.00); Lymphocytes # (Auto) 2.7 Thou/mm3 (1.0-4.8); Lymphocytes % (Auto) 38 % (10-50); Mean Corpuscular HGB Conc 37.9 g/dl (31.0-37.0); Mean Corpuscular Hemoglobin 38.1 pg (25.0-35.0); Mean Corpuscular Volume 100 fL (80-100); Monocytes # (Auto) 0.8 Thou/mm3 (0.0-0.8); Monocytes % (Auto) 11 % (0-12); Neutrophils # (Auto) 3.3 Thou/mm3 (1.8-7.7); Neutrophils % (Auto) 47 % (37-80); Nucleated Red Blood Cell # 0.00 Thou/mm3 (0.00-0.00); Nucleated Red Blood Cell % 0 /100 WBC (0); Platelet Count 112 Thou/mm3 (140-440); RDW Standard Deviation 51.7 fL (35.1-43.9); Red Blood Count 3.39 Miln/mm3 (4.50-5.90); White Blood Count 7.0 Thou/mm3 (3.8-10.6)
[2024-12-16 06:13] LABS: Alanine Aminotransferase 16 U/L (10-49); Albumin, Serum 3.6 gm/dL (3.5-5.0); Albumin/Globulin Ratio 0.8 (1.2-2.2); Alkaline Phosphatase 187 U/L (46-116); Anion Gap 14 (7-16); Aspartate Amino Transferase 39 U/L (0-34); BUN/Creatinine Ratio 5 Ratio (12-20); Bilirubin,Total 2.8 mg/dL (0.3-1.2); Blood Urea Nitrogen 32 mg/dL (9-23); Calcium 9.4 mg/dL (8.3-10.6); Calcium (Corrected) 9.7 mg/dL (8.5-10.1); Carbon Dioxide 21.6 mMol/L (20.0-31.0); Chloride 91 mMol/L (98-107); Creatinine (Component) 5.9 mg/dL (0.6-1.3); Estimated Creatinine Clearance 11.7 mL/min (>60); Globulin 4.3 gm/dL (2.3-3.5); Glucose 139 mg/dL (74-106); Osmolality,Calculated 264 (275-295); Potassium 4.6 mMol/L (3.4-5.1); Sodium 127 mMol/L (136-145); Total Protein 7.9 gm/dL (5.7-8.2); eGFR 10 See Note
[2024-12-16] MEDS: INSULIN LISPRO (AdmeLOG) 1 UNIT/0.01 ML UNIT 3 UNIT SC (07:51)
[2024-12-16] MEDS: INSULIN LISPRO (AdmeLOG) 1 UNIT/0.01 ML UNIT SC (07:51)
--- NOTE | 2024-12-16 08:38 | PC.SS ---
Follow up note: Pt will return home upon dc. Pt is d/c for today.
--- NOTE | 2024-12-16 09:58 | PC.NURSE ---
Discharge orders in place, pt in dialysis
--- NOTE | 2024-12-16 13:56 | PD.RESDS ---
Planned Discharge Date 12/16/24 DS: Providers Provider Date of admission: 12/14/24 21:59 Primary care physician: Randall Ward MD Admitting Provider: Marie Feliciano MD Attending Provider on Admission: Nelson Linn MD Consults: 12/14/24 14:55 Consult to Nephrology Stat Comment: Consulting Provider: Santy Woods Attending Provider on DC: Nelson Linn MD Discharging Provider: Nelson Linn MD DS: Diagnosis Problem List Completed Was Problem List Reviewed/Reconciled?: Yes Hospital Course Hospital Course Hospital course: 54-year-old male with a past medical history of insulin-dependent type 2 diabetes mellitus, cirrhosis 2/2 to EtOH use, and ESRD on HD (M/W/F) follows Dr. Woods who presented to ED 12/14 via ambulance for evaluation of altered mental status x 1 day. Patient admitted for hepatic encephalopathy secondary to decompensated liver cirrhosis. ED course: Initial vitals in ED include temperature 98.2, pulse 56, blood pressure 137/83, respirations 18, O2 saturation 98% on room air. Notable labs include WBC 3.7, hemoglobin 11.6, sodium 141, potassium 5.4, BUN 45, creatinine 4.4, eGFR 15, glucose 313, total bilirubin 3.0, AST 22, ALT 13, alk phos 182, ammonia 223, BNP 91. Head CT was negative for acute hemorrhage, mass effect or midline shift. Hospital course: Abdominal ultrasound negative for ascites. Patient received lactulose and had appropriate bowel movements. Recieved 2 HD sessions for ESRD. Patient able to answer questions appropriately and follow commands at time of discharge. Discharge instructions: - Increased lactulose dose to 30mg by mouth three times a day - Must achieve 2-3 bowel movements a day; if going more please ask your Prialtoonary Care Physician to adjust dose - Continue all other home medications as prescribed - Please follow-up with your data conversion analyst and continue going to dialysis sessions as scheduled - Follow-up with your Primary Care Physcian within 1 week of discharge or follow-up at the [facility] [address] [place] [address] - If your symptoms worsen or if you develop new chest pain, shortness of breath, dizziness or loss of consciousness - please come back to the Emergency Department immediately. Admission diagnoses: #Hepatic encephalopathy 2/2 #Decompensated liver cirrhosis #ESRD, on hemodialysis M/W/F #Hyperkalemia, resolved #Insulin-dependent type 2 diabetes #Hx of Hypothyroidism Case discussed with my attending Dr. Linn , and senior resident, Dr. Denise Torres MD PGY-1 Status at Discharge Overall status at discharge: patient is back to baseline Time Spent with Patient Time attestation: Total time spent providing and/or coordinating discharge services: Time spent: Greater than 30 minutes Exam Vital Signs Temp Pulse Resp BP Pulse Ox O2 Del Method 97.8 F 90 18 115/88 H 94 L Room Air 12/16/24 12:00 12/16/24 12:00 12/16/24 12:00 12/16/24 12:00 12/16/24 12:00 12/16/24 12:00 Narrative Exam General: Not in acute distress, responding to questions appropriately. HEENT: normocephalic, atraumatic; EOMI; mucous membranes pink, moist; oropharynx clear, neck supple. Lungs: Good air entry bilaterally; no wheezes, no rales, no rhonchi. Heart: regular rate, regular rhythm; normal s1, s2; no murmurs. Abdomen: No distention; normal bs; soft, no tenderness, no guarding, no rebound; no masses, no organomegaly, no hernia, asterixis present. AV fistula present in left arm Extremities: atraumatic; no edema. Neurologic: Alert and oriented x 3. No focal neurologic deficits, cranial nerves II-XII grossly intact. Psychiatric: appropriate mood and affect. Skin: warm, dry, normal color; no rashes. Discharge Plan Plan Patient Disposition: HOME (Self Care) Care Plan Goals: Increased lactulose dose to 30mg by mouth three times a day - Must achieve 2-3 bowel movements a day; if going more please ask your Prialtoonary Care Physician to adjust dose Continue all other home medications as prescribed Please follow-up with your data conversion analyst and continue going to dialysis sessions as scheduled Follow-up with your Primary Care Physcian within 1 week of discharge or follow-up at the [facility] [address] [place] [address] If your symptoms worsen or if you develop new chest pain, shortness of breath, dizziness or loss of consciousness - please come back to the Emergency Department immediately. Aumente la dosis de lactulosa a 30 mg por v?a oral ban veces al d?a. Debe lograr de 2 a 3 evacuaciones intestinales al d?a; si tiene m?s, consulte a morris m?dico de cabecera para ajustar la dosis. Contin?e con todos los dem?s medicamentos que edith en casa seg?n lo prescrito. Por favor, fredy un seguimiento con morris nefr?logo y contin?e asistiendo a las sesiones de di?lisis seg?n lo programado. Fredy un seguimiento con morris m?dico de cabecera dentro de la semana posterior al monique o en el [facility], [address], [place], [place] [id number] . Si stephen s?ntomas empeoran o si presenta un nuevo dolor en el pecho, dificultad para respirar, mareos o p?rdida del conocimiento, regrese al Departamento de Emergencias de inmediato. Prescriptions/Referrals Prescriptions/Med Rec: New (DME) blood-gluc meter-wrist BP mntr Kit See Rx Instructions .Route Qty: 1 0RF Rx Instructions: As directed (DME) Blood Glucose Test Strip See Rx Instructions .Route Qty: 50 0RF Rx Instructions: Instructions: Prepare the Test Strip: Insert the test strip into the glucose meter as instructed by the computer graphic designer. Follow the prompts on the meter to activate it. Clean and Prick Your Finger: Wash your hands with soap and water or use an alcohol swab to clean your finger. Choose a finger that is not sore or bruised. Insert the lancet into the lancing device and prick your finger gently. Squeeze out a small drop of blood. Apply Blood to the Test Strip: Touch the tip of the test strip to the drop of blood. The blood will automatically be drawn into the strip. Wait for Results: Follow the instructions on the glucose meter and wait for the reading to appear. Note down the result in your logbook. Clean Up: Discard the used lancet and test strip in a sharps container. Clean your finger with soap and water or an alcohol swab (DME) lancets 21 gauge misc See Rx Instructions .Route Qty: 100 0RF Rx Instructions: Twist and pull the long piece of safety plastic off the end of the lancet. Then, place the lancet between your index and middle finger (like holding a syringe). Place and hold onto the finger you wish to draw blood from and press down on the large yellow button until you hear a click. (DME) FreeStyle Thiago 3 Plus Sensor Device See Rx Instructions .Route Qty: 2 0RF Rx Instructions: As directed (DME) FreeStyle Thiago 3 [place] Misc See Rx Instructions .Route Qty: 1 0RF Rx Instructions: As directed Continued levothyroxine 50 mcg tablet 50 mcg PO DAILY cholecalciferol (vitamin D3) 50 mcg (2,000 unit) capsule 1 cap PO QDAY Patient Comments: TOME 1 C PSULA POR V A ORAL TODOS LOS D thiamine HCl (vitamin B1) [Vitamin B-1] 100 mg tablet 100 mg PO QDAY Xifaxan 550 mg Tablet 550 mg PO BID 30 Days Qty: 60 2RF insulin lispro [Admelog SoloStar U-100 Insulin] 100 unit/mL insulin pen 3 unit subcut TIDWMEAL Qty: 15 0RF (DME) pen needle, diabetic [Easy Comfort Pen [place]] 31 gauge x 1/4 needle See Rx Instructions .Route Qty: 100 0RF Rx Instructions: As directed. Substitutions allowed spironolactone 50 mg tablet 100 mg PO DAILY 30 Days Qty: 60 0RF insulin degludec 200 unit/mL (3 mL) insulin pen 20 unit subcut QDAY Qty: 9 0RF Changed lactulose 10 gram/15 mL Solution 30 g PO TID 30 Days Qty: 4050 2RF Referrals: Randall Ward MD [Primary Care Provider, Family Practice] Patient/Caregiver Discharge Instructions Education Materials: Treating Cirrhosis, Understanding Cirrhosis, Discharge Instructions for ... Print Language: Uzbek Stand Alone Forms: Mago Award Info., Patient Portal Info Letter Discharge Order Discharge Orders: Discharge (Routine); Ordered 12/16/24 Ordered By: Jose Walker Quality Discharge Quality Measures VTE prophylaxis MD Attestestation MD Attestation I have examined the patient, reviewed labs and imaging findings, discussed the case with the resident(s), and reviewed entered orders. I agree with the plan of care as outlined in this note. Time Spent: [address] Temitope MD
== END 2024-12-16 17:14 | disposition home or self-care (01) | DRG 432 ==
LOC: SERX 17:51 → SERHOLD 22:37 → S3SX 12-15 00:04
PROVIDERS: Admitting Provider Student in an Organized Health Care Education/Training Program; Emergency Provider Emergency Medicine; PCP Family Medicine; Visit Provider Student in an Organized Health Care Education/Training Program
DX: K70.30 Alcoholic cirrhosis of liver without ascites (principal); N18.6 End stage renal disease; I12.0 Hypertensive chronic kidney disease with stage 5 chronic kidney disease or end stage renal disease; E11.22 Type 2 diabetes mellitus with diabetic chronic kidney disease; K76.82 Hepatic encephalopathy; E87.5 Hyperkalemia; E03.9 Hypothyroidism, unspecified; Z99.2 Dependence on renal dialysis; Z79.890 Hormone replacement therapy; Z79.4 Long term (current) use of insulin
CPT/HCPCS: 36415; 70450; 76705; 80053; 80307; 80320; 81001; 82140; 82607; 82746; 83036; 83735; 83880; 84100; 84439; 84443; 84484; 85025; 85610; 85730; 87040; 87081; 87086; 90935; 93005; 93225; 96365; 96366; 96372; 99285; J0696; J1644; J1815; J2405; A9270; G0257; G0480